=== PATIENT | female | born 1995 | race Caucasian/White ===

== ENCOUNTER → 2018-08-06 | Outpatient (CLI) | payer MEDICAID ==
--- NOTE | 2018-08-06 16:57 | Diagnostic Imaging Report ---
CLINICAL INDICATION: Patient with daily persistent migraines x seven weeks. No known trauma. EXAM: Axial CT scan of the brain performed without IV contrast. COMPARISON: None. FINDINGS: Skull streak artifact obscures some portions of the posterior fossa and brainstem. There is no evidence of acute cerebral infarct, intracranial hemorrhage, or gross mass effect. The brain parenchymal volume appears appropriate for patient's age. There is normal francois-white matter distinction. There is no significant midline shift or herniation. There is no evidence of hydrocephalus. The basal cisterns are unremarkable. The skull, extracranial soft tissue, and orbits are unremarkable. The paranasal sinuses are unremarkable. Temporal bones show no significant abnormality. IMPRESSION: Unremarkable CT scan of the brain. Dictated by: Dictated on workstation # [id number]
== END ==
LOC: RAD FS 16:35
PROVIDERS: ATTEND Nurse Practitioner Family
DX: G44.52 New daily persistent headache (NDPH) (principal)
CPT/HCPCS: 70450

== ENCOUNTER 2019-02-16 08:23 | Emergency (ER) | payer MEDICAID ==
[~2019-02-16] VITALS: Ht 162.5 cm; Wt 64.6 kg
--- NOTE | 2019-02-16 08:52 | ED General ---
General Chief Complaint: General Problems/Pain Stated Complaint: FEVER;NAUSEA;BREAST PAIN History of Present Illness Date Seen by Provider: Feb 16, 2019 Time Seen by Provider: 08:46 Initial Comments 23 yo female complains of 1-2 weeks of nausea vomits ~ twice daily subjective fever, sweats, and burning discomfort in breasts ROS + dysuria and frequency +PMHx for UTI's once requiring hospitaization one of children has pneumonia, but pt has no cough or SOB no hx of any cardiac or pulm pathology had borderline thyroid blood tests during that returned to normal has used xanax in the past for anxiety Allergies and Home Medications Allergies Coded Allergies: No Known Drug Allergies (Unverified , 02/16/19) Home Medications Alprazolam 0.5 Mg Tablet, 0.5 MG PO TID Prescribed by: KYLER ROSARIO on 02/16/19 1006 Patient Home Medication List Home Medication List Reviewed: Yes Review of Systems Review of Systems Constitutional: fever EENTM: no symptoms reported; No throat pain Respiratory: No cough, No short of breath Cardiovascular: no symptoms reported, chest pain (burning sensation superficially in breasts no deep chest pain no SOB); No palpitations, No syncope Gastrointestinal: No abdominal pain; nausea, vomiting Genitourinary: dysuria, frequency : No (states on depo shots 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 oz. 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 present Progress/Results/Core Measures Suspected Sepsis SIRS Temperature: Pulse: Respiratory Rate: Laboratory Tests 02/16/19 08:50: White Blood Count 6.1 Blood Pressure / Mean: Laboratory Tests 02/16/19 08:50: Creatinine 0.77, Platelet Count 272, Total Bilirubin 0.6 Results/Orders Lab Results Laboratory Tests Test 02/16/19 08:50 02/16/19 09:13 Range/Units White Blood Count 6.1 4.3-11.0 10^3/uL Red Blood Count 4.27 L 4.35-5.85 10^6/uL Hemoglobin 13.6 11.5-16.0 G/DL Hematocrit 40 35-52 % Mean Corpuscular Volume 93 80-99 FL Mean Corpuscular Hemoglobin 32 25-34 PG Mean Corpuscular Hemoglobin Concent 34 32-36 G/DL Red Cell Distribution Width 12.3 10.0-14.5 % Platelet Count 272 130-400 10^3/uL Mean Platelet Volume 9.4 7.4-10.4 FL Neutrophils (%) (Auto) 59 42-75 % Lymphocytes (%) (Auto) 34 12-44 % Monocytes (%) (Auto) 7 0-12 % Eosinophils (%) (Auto) 0 0-10 % Basophils (%) (Auto) 0 0-10 % Neutrophils # (Auto) 3.6 1.8-7.8 X 10^3 Lymphocytes # (Auto) 2.1 1.0-4.0 X 10^3 Monocytes # (Auto) 0.4 0.0-1.0 X 10^3 Eosinophils # (Auto) 0.0 0.0-0.3 10^3/uL Basophils # (Auto) 0.0 0.0-0.1 10^3/uL Sodium Level 140 135-145 MMOL/L Potassium Level 3.9 3.6-5.0 MMOL/L Chloride Level 105 98-107 MMOL/L Carbon Dioxide Level 21 21-32 MMOL/L Anion Gap 14 5-14 MMOL/L Blood Urea Nitrogen 10 7-18 MG/DL Creatinine 0.77 0.60-1.30 MG/DL Estimat Glomerular Filtration Rate > 60 BUN/Creatinine Ratio 13 Glucose Level 116 H 70-105 MG/DL Calcium Level 10.0 8.5-10.1 MG/DL Corrected Calcium 8.5-10.1 MG/DL Total Bilirubin 0.6 0.1-1.0 MG/DL Aspartate Amino Transf (AST/SGOT) 31 5-34 U/L Alanine Aminotransferase (ALT/SGPT) 27 0-55 U/L Alkaline Phosphatase 74 40-136 U/L Total Protein 8.0 6.4-8.2 GM/DL Albumin 5.1 H 3.2-4.5 GM/DL Urine Color YELLOW Urine Clarity CLEAR Urine pH 7.0 5-9 Urine Specific [place] 1.015 L 1.016-1.022 Urine Protein NEGATIVE NEGATIVE Urine Glucose (UA) NEGATIVE NEGATIVE Urine Ketones TRACE H NEGATIVE Urine Nitrite NEGATIVE NEGATIVE Urine Bilirubin NEGATIVE NEGATIVE Urine Urobilinogen 0.2 NORMAL MG/DL Urine Leukocyte Esterase NEGATIVE NEGATIVE Urine RBC (Auto) NEGATIVE NEGATIVE Urine RBC 0-2 /HPF Urine WBC 2-5 /HPF Urine Squamous Epithelial Cells 25-50 H /HPF Urine Crystals NONE /LPF Urine Bacteria FEW H /HPF Urine Casts NONE /LPF Urine Mucus SMALL H /LPF Urine Culture Indicated NO Urine Test NEGATIVE NEGATIVE My Orders Orders - KYLER ROSARIO MD Urinalysis (02/16/19 08:43) Hcg,Qualitative Urine (02/16/19 08:43) Cbc With Automated Diff (02/16/19 08:43) Comprehensive Metabolic Panel (02/16/19 08:43) Chest Pa/Lat (2 View) (02/16/19 08:43) Iv Heplock-Insert (Order) (02/16/19 08:45) Ekg Tracing (02/16/19 09:53) Vital Signs/I&O 02/16/19 08:30 Temp 37.4 Pulse 113 Resp 16 B/P (MAP) 125/90 (102) Pulse Ox 99 O2 Delivery Room Air Capillary Refill : Progress Note : Progress Note exam, all labs, and chest x-ray are neg/normal pt acknowledges hx of anxiety will Rx Xanax and ask pt to follow up with primary ECG EKG : Comment EKG - sinus @ [address] changes flipped T in III no old tracings available Departure Impression Primary Impression: Atypical chest pain Additional Impression: Anxiety Disposition: 01 HOME, SELF-CARE Condition: Stable Departure-Patient Inst. Decision time for Depature: 09:54 Referrals: [facility] (PCP) Primary Care Physician LOYD SONI MD (Family) Primary Care Physician Patient Instructions: Chest Pain That Is Not Caused by the Heart (DC), Anxiety, Adult (DC) Scripts Alprazolam (Xanax) 0.5 Mg Tablet 0.5 MG PO TID for Anxiety, #20 TAB Prov: KYLER ROSARIO MD 02/16/19 KYLER ROSARIO MD Feb 16, 2019 08:52
[2019-02-16 09:16] LABS: BASOPHILS % (AUTO) 0 % (0-10); EOSINOPHILS % (AUTO) 0 % (0-10); HEMATOCRIT 40 % (35-52); HEMOGLOBIN 13.6 G/DL (11.5-16.0); LYMPHOCYTES # (AUTO) 2.1 X 10^3 (1.0-4.0); LYMPHOCYTES % (AUTO) 34 % (12-44); MEAN CORPUSCULAR HEMOGLOBIN 32 PG (25-34); MEAN CORPUSCULAR HGB CONC 34 G/DL (32-36); MEAN CORPUSCULAR VOLUME 93 FL (80-99); MEAN PLATELET VOLUME 9.4 FL (7.4-10.4); MONOCYTES % (AUTO) 7 % (0-12); NEUTROPHILS # (AUTO) 3.6 X 10^3 (1.8-7.8); NEUTROPHILS % (AUTO) 59 % (42-75); PLATELET COUNT 272 10^3/uL (130-400); RED CELL DISTRIBUTION WIDTH 12.3 % (10.0-14.5); WHITE BLOOD COUNT 6.1 10^3/uL (4.3-11.0)
[2019-02-16 09:17] LABS: MONOCYTES # (AUTO) 0.4 X 10^3 (0.0-1.0)
--- NOTE | 2019-02-16 09:19 | Diagnostic Imaging Report ---
Patient History: Chills. Nausea and vomiting. Bilateral breast burning. Technique: Two views of the chest Comparison: None FINDINGS: The lung volumes are normal. No focal consolidation is seen. No large pleural effusion or pneumothorax is seen. The cardiomediastinal silhouette is normal in size and contour. No acute osseous abnormality is seen. IMPRESSION: 1. No acute pleuroparenchymal process. Dictated by: Dictated on workstation # [id number]
[2019-02-16 09:25] LABS: ALANINE AMINOTRANSFERASE 27 U/L (0-55); ALBUMIN 5.1 GM/DL (3.2-4.5); ALKALINE PHOSPHATASE 74 U/L (40-136); BILIRUBIN,TOTAL 0.6 MG/DL (0.1-1.0); BUN/CREATININE RATIO 13; CARBON DIOXIDE 21 MMOL/L (21-32); CHLORIDE 105 MMOL/L (98-107); CREATININE SERUM 0.77 MG/DL (0.60-1.30); GFR ESTIMATED > 60; GLUCOSE 116 MG/DL (70-105); POTASSIUM 3.9 MMOL/L (3.6-5.0); SODIUM 140 MMOL/L (135-145)
[2019-02-16 09:35] LABS: CLARITY,URINE CLEAR; COLOR,URINE YELLOW
[2019-02-16 09:36] LABS: BILIRUBIN,URINE NEGATIVE (NEGATIVE); GLUCOSE, URINE (UA) NEGATIVE (NEGATIVE); KETONES,URINE TRACE (NEGATIVE); LEUKOCYTE ESTERASE ,URINE NEGATIVE (NEGATIVE); NITRITE,URINE NEGATIVE (NEGATIVE); PROTEIN,URINE NEGATIVE (NEGATIVE); UROBILINOGEN,URINE 0.2 MG/DL (NORMAL)
[2019-02-16 09:38] LABS: BACTERIA,URINE FEW /HPF; RBC,URINE 0-2 /HPF
[2019-02-16 09:39] LABS: SQUAMOUS EPITHELIAL CELL,UR 25-50 /HPF
[2019-02-16] MEDS ORDERED: ALPR0.5T PO (10:06)
[2019-02-16 10:19] VITALS: BP 112/62
== END 2019-02-16 10:19 | disposition home or self-care (01) ==
LOC: EDUNIT# 08:23 → ER FS 08:25
DX: R07.89 Other chest pain (principal); F41.9 Anxiety disorder, unspecified
CPT/HCPCS: 36415; 71046; 80053; 81000; 84443; 84703; 85025; 93005

== ENCOUNTER 2019-11-30 16:50 | Emergency (ER) | payer MEDICAID ==
[~2019-11-30] VITALS: Ht 162.5 cm; Wt 64.6 kg
[~2019-11-30 16:50] MED LIST: ALPR0.5T PO
--- OUTSIDE RECORDS SUMMARY | 2019-11-30 16:56 | XMS REPORT ---
Author Author Emy GOOD Organization [facility] Address [address] [place] [address] Care Team Providers Care Chemic Mangler Name Role Phone WILMER GOOD Unavailable PROBLEMS Type Condition ICD9-CM Code LXC57-HY Code Onset Dates Condition S tatus SNOMED Code Problem Generalized anxiety disorder F41.1 A ctive 03549025 Problem Intractable migraine without status migrainosus, unspecified migraine type G43.919 Active 190774308 Problem New daily persistent headache G44.52 Active 470355262402778 Problem Vaginal bleeding N93.9 Active 289 755523 Problem Menorrhagia with irregular cycle N92.1 Active 865928613 Problem Migraine without aura and without status migrain osus, not intractable G43.009 Active 310724939 Problem Amenorrhea N91.2 Active 27944677 Problem Non-seasonal allergic rhinitis, unspecified trigger J30.89 Active 18451607 Problem Missed period N92.6 Active 436296 00 ALLERGIES No Known Allergies ENCOUNTERS Encounter Location Date Diagnosis [address] [id number] [place] [address] Oct, Generalized anxiety disorder F41.[address] [id number] [address] September, Generalized anxiety disorder F41.[address] [id number] [place] [address] 14 Aug, 2019 Generalized anxiety disorder F41.[address] [id number] [place] [address] 07 Aug, [address] [id number] [place] [address] Jul, Generalized anxiety disorder F41.[address] [id number] [place] [address] Jul, Menorrhagia with irregular c ycle N92.[address] [id number] [place] [address] Jul, Vaginal bleeding N93.[address] [id number] [address] Jul, Vaginal bleeding N93.[address] [id number], [place] [address] Jul, Burning chest pain R07.[address] [id number] [address] Jul, [address] [id number], [place] [address] Jul, Burning chest pain R07.89 an d Generalized anxiety disorder F41.[address] 340 [id number], [place] [address] Jul, [address] [id number], [place] [address] Jun, Generalized anxiety disorder F41.1 and Burning chest pain R07.89 [facility] [address] [facility] [id number] [address] [place] [address] Jun, [address] [id number], [place] [address] Jun, [address] [id number] [address] May, Missed period N92.6 ; Non-se asonal allergic rhinitis, unspecified trigger J30.89 ; Non-intractable vomiting without nausea, unspecified vomiting type R11.11 and Generalized anxiety disorder F41.[address] [id number] [address] May, Burning chest pain R07.[address] [id number] [place] [address] Apr, Burning chest pain R07.89 [facility] [address] [id number] [place] [address] Apr, Encounter for immunization Z 23 [facility] [address] [id number] [place] [address] Apr, Burning chest pain R07.89 [facility] [address] [id number] [place] [address] Mar, [facility] [address] [id number] [place] [address] Mar, Burning chest pain R07.89 [facility] [address] [id number] [place] [address] Mar, [facility] [address] [id number], [place] [address] Mar, [facility] [address] [id number] [place] [address] Mar, Perineal rash in female R21 [facility] [address] [id number], [place] [address] Mar, Abnormal thyroid function te st R94.6 [facility] [address] [id number], [place] [address] Mar, Burning chest pain R07.89 [facility] [address] [id number] [place] [address] Mar, [facility] [address] [id number] [address] [place] [address] Mar, Burning chest pain R07.89 [facility] [address] [id number] [place] [address] Feb, Left cervical lymphadenopath y R59.0 ; Thyroid pain E07.89 and Sore throat J02.9 [facility] [address] [id number] [place] [address] Feb, Left cervical lymphadenopath y R59.0 ; Thyroid pain E07.89 and Sore throat J02.9 [facility] [address] [id number] [place] [address] Feb, [facility] [address] [id number] [place] [address] Feb, Abnormal thyroid function te st R94.6 [facility] [address] [id number] [place] [address] Feb, Burning chest pain R07.89 [facility] [address] [id number] [place] [address] Feb, [facility] [address] [id number], [place] [address] Feb, [facility] [address] [id number] [address] [place] [address] Feb, [facility] [address] [id number] [place] [address] Jan, Encounter for Depo-Provera c ontraception Z30.42 [facility] [address] [id number] [place] [address] Nov, [facility] [address] [id number], [place] [address] Oct, [facility] [address] [id number] [place] [address] Oct, Pelvic pain R10.2 ; Bladder pain R39.89 and Urinary frequency R35.0 [facility] [address] [id number] [place] [address] Oct, [facility] [address] [id number] [place] [address] Oct, Encounter for Depo-Provera c ontraception Z30.[address] [id number] [place] [address] September, Amenorrhea N91.[address] [id number] [address] September, Amenorrhea N91.[address] [id number], [place] [address] Aug, Vaginal discharge N89.8 and Candidal vaginitis B37.[address] [id number], [place] [address] Aug, [address] [id number], [place] [address] Aug, [address] [id number], [place] [address] Aug, Vaginal yeast infection B37. [address] [id number], [place] [address] Aug, Ingrown toenail of right zack t L60.[address] 340 [id number] [address] Aug, Ingrown right greater toenai l L60.0 and Paronychia of great toe of right foot L03.[address] 340 [id number] [address] Aug, Migraine headache G43.[address] 340[address] [id number], [place] [address] Aug, Migraine without aura and wi thout status migrainosus, not intractable G43.[address] [id number], [place] [address] Jul, [address] [id number], [place] [address] Jul, [address] 340[address] [id number], [place] [address] Jul, [facility] [address] [id number] [place] [address] Jul, New daily persistent headach e G44.52 [facility] [address] [id number] [place] [address] Jul, [facility] [place] [address] [id number], [place] [address] Jul, Intractable migraine without status migrainosus, unspecified migraine type G43.919 [facility] [place] [address] [id number], [place] [address] Jul, [facility] [place] [address] [id number], [place] [address] Jul, Acute non-recurrent maxillar y sinusitis J01.00 and Generalized anxiety disorder F41.1 [facility] [address] [id number] [place] [address] Jun, Acute nasopharyngitis J00 [facility] [address] [facility] [id number] [address] [place] [address] Aug, [facility] [address] [facility] [id number] [address] [place] [address] Aug, [facility] [address] [facility] [id number] [address] [place] [address] May, [facility] [address] [facility] [id number] [address] [place] [address] May, [facility] [address] [facility] [id number] [address] [place] [address] May, IMMUNIZATIONS No Known Immunizations SOCIAL HISTORY Never Assessed REASON FOR VISIT Migraines. Jim OLIVARES PLAN OF CARE Activity Details Follow Up 4 Weeks Reason: VITAL SIGNS Height 64 in 2018-08-14 Weight 152 lbs 2018-08-14 Temperature 98.7 degrees Fahrenheit 2018-08-14 Heart Rate 93 bpm 2018-08-14 Respiratory Rate 18 2018-08-14 BMI 26.09 kg/m2 2018-08-14 Blood pressure systolic 124 mmHg 2018-08-14 Blood pressure diastolic 78 mmHg 2018-08-14 MEDICATIONS Medication Instructions Dosage Frequency Start Date End Date Duration S tatus Imitrex 50 MG Orally no more than twice a day 1 tablet as needed. May repeat one time 2 hours later if needed Jul, Active Promethazine HCl 25 MG Orally every 12 hrs 1 tablet as needed 12h Jul, 30 day(s) Active Topamax 25 MG Orally at bedtime 1 tablet Aug, 30 day(s) Active Depo-Provera Contraceptive 150 mg/mL SIG : 1 mL intramuscularly every 3 months May, Active DiphenhydrAMINE HCl 25 MG Orally every 8 hrs 1 tablet as needed 8h Jul, Active RESULTS No Results PROCEDURES No Known procedures INSTRUCTIONS MEDICATIONS ADMINISTERED No Known Medications MEDICAL (GENERAL) HISTORY Type Description Date Medical History Generalized anxiety disorder Medical History Intractable migraine without status migrainosus, unspecified migraine type Medical History New daily persistent headache Medical History Migraine without aura and wi thout status migrainosus, not intractable Medical History Amenorrhea Hospitalization History childbirth only x2 Hospitalization History migraines with
--- OUTSIDE RECORDS SUMMARY | 2019-11-30 16:56 | XMS REPORT | Continuity of Care Document ---
Author Organization Unknown Address Unknown Phone Unavailable Allergies Active Description Code Type Severity Reaction Onset Reported/Identified Relationship to Patient Clinical Status Yes No Known Drug Allergies [id number] Drug Allergy Unknown N/A 02/16/2019 Medications There is no data. Problems Date Dx Coded Attending Type Code Diagnosis Diagnosed By 08/07/2018 ABEL GOOD HEALTH EDUCATION DIRECTOR Ot G44.52 NEW DAILY PERSISTENT HEADACHE (NDPH) 08/07/2018 FLORENTINO ABEL HEALTH EDUCATION DIRECTOR Ot G44.52 NEW DAILY PERSISTENT HEADACHE (NDPH) 08/09/2018 FLORENTINO, ABEL HEALTH EDUCATION DIRECTOR Ot G44.52 NEW DAILY PERSISTENT HEADACHE (NDPH) 08/10/2018 FLORENTINO ABEL HEALTH EDUCATION DIRECTOR Ot G44.52 NEW DAILY PERSISTENT HEADACHE (NDPH) 02/16/2019 FLORENTINO ABEL HEALTH EDUCATION DIRECTOR Ot G44.52 NEW DAILY PERSISTENT HEADACHE (NDPH) Procedures There is no data. Results Test Result Range TSH w/ FREE T4 - 08/03/18 15:09 TSH 0.44 mIU/L NRG T4, FREE 1.2 ng/dL 0.8-1.8 CMP - 08/03/18 15:09 GLUCOSE 84 mg/dL 65-99 UREA NITROGEN (BUN) 15 mg/dL 7-25 CREATININE 0.80 mg/dL 0.50-1.10 eGFR NON-AFR. AZERBAIJANI 103 mL/min/1.73m2 > OR = 60 eGFR 120 mL/min/1.73m2 > OR = 60 BUN/CREATININE RATIO NOT APPLICABLE (calc) 6-22 SODIUM 140 mmol/L 135-146 POTASSIUM 3.6 mmol/L 3.5-5.3 CHLORIDE 108 mmol/L 98-110 CARBON DIOXIDE 23 mmol/L 20-32 CALCIUM 9.9 mg/dL 8.6-10.2 PROTEIN, TOTAL 7.3 g/dL 6.1-8.1 ALBUMIN 5.2 g/dL 3.6-5.1 GLOBULIN 2.1 g/dL (calc) 1.9-3.7 ALBUMIN/GLOBULIN RATIO 2.5 (calc) 1.0-2. 5 BILIRUBIN, TOTAL 0.4 mg/dL 0.2-1.2 ALKALINE PHOSPHATASE 62 U/L 33-115 AST 18 U/L 10-30 ALT 16 U/L 6-29 CBC - 08/03/18 15:09 WHITE BLOOD CELL COUNT 7.0 Thousand/uL 3 .8-10.8 RED BLOOD CELL COUNT 4.16 Million/uL 3.8 0-5.10 HEMOGLOBIN 13.3 g/dL 11.7-15.5 HEMATOCRIT 39.7 % 35.0-45.0 MCV 95.4 fL 80.0-100.0 MCH 32.0 pg 27.0-33.0 MCHC 33.5 g/dL 32.0-36.0 RDW 12.5 % 11.0-15.0 PLATELET COUNT 276 Thousand/uL 140-400 MPV 9.6 fL 7.5-12.5 ABSOLUTE NEUTROPHILS 3682 cells/uL 1500- 7800 ABSOLUTE LYMPHOCYTES 2695 cells/uL 850-3 900 ABSOLUTE MONOCYTES 581 cells/uL 200-950 ABSOLUTE EOSINOPHILS 21 cells/uL 15-500 ABSOLUTE BASOPHILS 21 cells/uL 0-200 NEUTROPHILS 52.6 % NRG LYMPHOCYTES 38.5 % NRG MONOCYTES 8.3 % NRG EOSINOPHILS 0.3 % NRG BASOPHILS 0.3 % NRG GC/CHLAMYDIA (SWAB OR URINE)-RAPID - 15:03 CHLAMYDIA TRACHOMATIS RNA, TMA NOT DETECTED NOT DETECTED NEISSERIA GONORRHOEAE RNA, TMA NOT DETECTED NOT DETECTED COMMENT NRG HCG, QUANTITATIVE - 09/26/18 15:59 HCG, TOTAL, QN <2 mIU/mL NRG GC/CHLAMYDIA (SWAB OR URINE)-RAPID - 14:40 CHLAMYDIA TRACHOMATIS RNA, TMA NOT DETECTED NOT DETECTED NEISSERIA GONORRHOEAE RNA, TMA NOT DETECTED NOT DETECTED COMMENT NRG Complete blood count (CBC) with automate d white blood cell (WBC) differential - 02/16/19 08:50 Blood leukocytes automated count (number/volume) 6.1 10*3/uL 4.3-11.0 Blood erythrocytes automated count (number/volume) 4.27 10*6/uL 4.35-5.85 Venous blood hemoglobin measurement (mass/volume) 13.6 g/dL 11.5-16.0 Blood hematocrit (volume fraction) 40 % 35-52 Automated erythrocyte mean corpuscular volume 93 [ foz_us] 80-99 Automated erythrocyte mean corpuscular h emoglobin (mass per erythrocyte) 32 pg 25-34 Automated erythrocyte mean corpuscular h emoglobin concentration measurement (mass/volume) 34 g/dL 32-36 Automated erythrocyte distribution width ratio 12. 3 % 10.0- 14.5 Automated blood platelet count (count/volume) 272 10*3/uL 130-400 Automated blood platelet mean volume measurement 9.4 [foz_us] 7.4-10.4 Automated blood neutrophils/100 leukocytes 59 % 42-75 Automated blood lymphocytes/100 leukocytes 34 % 12-44 Blood monocytes/100 leukocytes 7 % 0-12 Automated blood eosinophils/100 leukocytes 0 % 0-10 Automated blood basophils/100 leukocytes 0 % 0-10 Blood neutrophils automated count (number/volume) 3.6 10*3 1.8-7.8 Blood lymphocytes automated count (number/volume) 2.1 10*3 1.0-4.0 Blood monocytes automated count (number/volume) 0. 4 10*3 0.0-1.0 Automated eosinophil count 0.0 10*3/uL 0 .0-0.3 Automated blood basophil count (count/volume) 0.0 10*3/uL 0.0-0.1 Comprehensive metabolic panel - 02/16/19 08:50 Serum or plasma sodium measurement (moles/volume) 140 mmol/L 135-145 Serum or plasma potassium measurement (moles/volume) 3.9 mmol/L 3.6-5.0 Serum or plasma chloride measurement (moles/volume) 105 mmol/L 98-107 Carbon dioxide 21 mmol/L 21-32 Serum or plasma anion gap determination (moles/volume) 14 mmol/L 5-14 Serum or plasma urea nitrogen measurement (mass/volume ) 10 mg/dL 7-18 Serum or plasma creatinine measurement (mass/volume) 0.77 mg/dL 0.60-1.30 Serum or plasma urea nitrogen/creatinine mass ratio 13 NRG Serum or plasma creatinine measurement w ith calculation of estimated glomerular filtration rate > NRG Serum or plasma glucose measurement (mass/volume) 116 mg/dL 70-105 Serum or plasma calcium measurement (mass/volume) 10.0 mg/dL 8.5-10.1 Serum or plasma total bilirubin measurement (mass/volu me) 0.6 mg/dL 0.1-1.0 Serum or plasma alkaline phosphatase charles surement (enzymatic activity/volume) 74 U/L 40-136 Serum or plasma aspartate aminotransfera se measurement (enzymatic activity/volume) 31 U/L 5-34 Serum or plasma alanine aminotransferase measurement (enzymatic activity/volume) 27 U/L 0-55 Serum or plasma protein measurement (mass/volume) 8.0 g/dL 6.4-8.2 Serum or plasma albumin measurement (mass/volume) 5.1 g/dL 3.2-4.5 THYROID STIMULATING HORMONE - 02/16/19 0 8:50 THYROID STIMULATING HORMONE 0.49 u[iU]/mL 0.35-4.94 Urine beta human chorionic gonadotropin (hCG) measurement - 02/16/19 09:13 Urine beta human chorionic gonadotropin (hCG) measurem ent NEGATIVE NEGATIVE Complete urinalysis with reflex to cultu re - 02/16/19 09:13 Urine color determination YELLOW NRG Urine clarity determination CLEAR NR G Urine pH measurement by test strip 7.0 5-9 Specific gravity of urine by test strip 1.015 1.016-1.022 Urine protein assay by test strip, semi-quantitative NEGATIVE NEGATIVE Urine glucose detection by automated test strip NE GATIVE NEGATIVE Erythrocytes detection in urine sediment by light micr oscopy NEGATIVE NEGATIVE Urine ketones detection by automated test strip TR NORIS NEGATIVE Urine nitrite detection by test strip NEGATIVE NEGATIVE Urine total bilirubin detection by test strip NEGA TIVE NEGATIVE Urine urobilinogen measurement by automated test strip (mass/volume) 0.2 mg/dL NORMAL Urine leukocyte esterase detection by dipstick NEG ATIVE NEGATIVE Automated urine sediment erythrocyte cou nt by microscopy (number/high power field) [HPF] NRG Automated urine sediment leukocyte count by microscopy (number/high power field) [HPF] NRG Bacteria detection in urine sediment by light microsco py FEW NRG Squamous epithelial cells detection in u rine sediment by light microscopy 25-50 NRG Crystals detection in urine sediment by light microsco py NONE NRG Casts detection in urine sediment by light microscopy NONE NRG Mucus detection in urine sediment by light microscopy SMALL NRG Complete urinalysis with reflex to culture NO NRG TSH w/ FREE T4 - 03/04/19 15:01 TSH 0.33 mIU/L NRG T4, FREE 1.3 ng/dL 0.8-1.8 FSH, SERUM - 03/04/19 15:01 FSH 3.9 mIU/mL NRG TSH - 04/02/19 11:56 TSH 0.80 mIU/L NRG GC/CHLAMYDIA (SWAB OR URINE)-RAPID - 16:59 CHLAMYDIA TRACHOMATIS RNA, TMA NOT DETECTED NOT DETECTED NEISSERIA GONORRHOEAE RNA, TMA NOT DETECTED NOT DETECTED COMMENT NRG HCG, QUANTITATIVE - 08/08/19 11:20 HCG, TOTAL, QN <2 mIU/mL NRG Encounters ACCT No. Visit Date/Time Discharge Status Pt. Type Provider Facility Loc./Unit Complaint [id number] 08/08/2019 13:45:00 08/08/2019 23:59: 59 [facility] [id number] 08/08/2019 11:15:00 Document Registration [id number] 04/09/2019 17:40:00 Document Registration [id number] 04/02/2019 12:00:00 Document Registration [id number] 03/04/2019 14:20:00 Document Registration [id number] 11/08/2018 14:15:00 Document Registration [id number] 09/26/2018 16:15:00 Document Registration [id number] 09/05/2018 15:00:00 Document Registration [id number] 08/03/2018 14:20:00 Document Registration [id number] 02/16/2019 08:25:00 10:19:00 DIS Emergency MARLENE ADKINS, KYLER Mcmahon [facility] ER FS FEVER;NAUSEA;BREAST MIKAELA N [id number] 08/06/2018 16:35:00 23:59:59 CLS Outpatient ABEL GOOD [facility] RAD FS NEW DAILY PERSISTENT HE MICHAEL
--- OUTSIDE RECORDS SUMMARY | 2019-11-30 16:56 | XMS REPORT ---
Author Author Emy GOOD Organization [facility] Address [address] [place] [address] Care Team Providers [employer] Project Manager Name Role Phone WILMER GOOD Unavailable PROBLEMS Type Condition ICD9-CM Code RNO26-YX Code Onset Dates Condition S tatus SNOMED Code Problem Migraine without aura and without status migrain osus, not intractable G43.009 Active 329374896 Problem Amenorrhea N91.2 Active 53357110 Problem Generalized anxiety disorder F41.1 A ctive 00615942 Problem Intractable migraine without status migrainosus, unspecified migraine type G43.919 Active 570882156 Problem New daily persistent headache G44.52 Active [id number] ALLERGIES No Known Allergies ENCOUNTERS Encounter Location Date Diagnosis [address] [place] [address] Apr, Burning chest pain R07.89 [address] [place] [address] Apr, Encounter for immunization Z 23 [address] [place] [address] Apr, Burning chest pain R07.89 [address] [place] [address] Mar, [address] [place] [address] Mar, Burning chest pain R07.89 [address] [place] [address] Mar, [address] [place] [address] Mar, [address] [place] [address] Mar, Perineal rash in female R21 [facility] [address] [place] [address] Mar, Abnormal thyroid function te st R94.6 [facility] [address] [place] [address] Mar, Burning chest pain R07.89 [facility] [address] [place] [address] Mar, [facility] [address] [id number] [place] [address] Mar, Burning chest pain R07.89 [facility] [place] [address] [place] [address] Feb, Left cervical lymphadenopath y R59.0 ; Thyroid pain E07.89 and Sore throat J02.9 [facility] [address] [place] [address] Feb, Left cervical lymphadenopath y R59.0 ; Thyroid pain E07.89 and Sore throat J02.9 [facility] [place] [address] [place] [address] Feb, [facility] [place] [address] [place] [address] Feb, Abnormal thyroid function te st R94.6 [facility] [place] [address] [place] [address] Feb, Burning chest pain R07.89 [facility] [address] [place] [address] Feb, [facility] [address] [place] [address] Feb, [facility] [address] [id number] [place] [address] Feb, [facility] [place] [address] [place] [address] Jan, Encounter for Depo-Provera c ontraception Z30.42 [facility] [address] [place] [address] Nov, [facility] [address] [place] [address] Oct, [facility] [place] [address] [place] [address] Oct, Pelvic pain R10.2 ; Bladder pain R39.89 and Urinary frequency R35.0 [facility] [place] [address] [place] [address] Oct, [address] [place] [address] Oct, Encounter for Depo-Provera c ontraception Z30.42 [facility] [place] [address] [place] [address] September, Amenorrhea N91.[address] [place] [address] September, Amenorrhea N91.[address] [place] [address] Aug, Vaginal discharge N89.8 and Candidal vaginitis B37.3 [facility] [place] [address] [place] [address] Aug, [facility] [place] [address] [place] [address] Aug, [address] [place] [address] Aug, Vaginal yeast infection B37. 3 [facility] [place] [address] [place] [address] Aug, Ingrown toenail of right zack t L60.0 [facility] [place] [address] [place] [address] Aug, Ingrown right greater toenai l L60.0 and Paronychia of great toe of right foot L03.031 [facility] [place] [address] [place] [address] Aug, Migraine headache G43.909 [facility] [place] [address] [place] [address] Aug, Migraine without aura and wi thout status migrainosus, not intractable G43.009 [facility] [place] [address] [place] [address] Jul, [facility] [address] [place] [address] Jul, [facility] [address] [place] [address] Jul, [facility] [place] [address] [place] [address] Jul, New daily persistent headach e G44.52 [facility] [place] [address] [place] [address] Jul, [facility] [address] [place] [address] Jul, Intractable migraine without status migrainosus, unspecified migraine type G43.919 [facility] [place] [address] [place] [address] Jul, [facility] [place] [address] [place] [address] Jul, Acute non-recurrent maxillar y sinusitis J01.00 and Generalized anxiety disorder F41.1 [facility] [address] [place] [address] Jun, Acute nasopharyngitis J00 [facility] [address] [id number] [place] [address] 14 Aug, 2014 [facility] [address] [id number] [place] [address] 13 Aug, 2014 [facility] [address] [id number] [place] [address] May, [facility] [address] [id number] [place] [address] May, [facility] [address] [id number] [place] [address] May, IMMUNIZATIONS No Known Immunizations SOCIAL HISTORY Never Assessed REASON FOR VISIT Migraine, Jim OLIVARES PLAN OF CARE Activity Details Follow Up 1 Week Reason: VITAL SIGNS Height 64 in 2018-08-06 Weight 154 lbs 2018-08-06 Temperature 98.1 degrees Fahrenheit 2018-08-06 Heart Rate 111 bpm 2018-08-06 Respiratory Rate 18 2018-08-06 BMI 26.43 kg/m2 2018-08-06 Blood pressure systolic 124 mmHg 2018-08-06 Blood pressure diastolic 80 mmHg 2018-08-06 MEDICATIONS Medication Instructions Dosage Frequency Start Date End Date Duration S tatus Promethazine HCl 25 MG Orally every 12 hrs 1 tablet as needed 12h Jul, 30 day(s) Active DiphenhydrAMINE HCl 25 MG Orally every 8 hrs 1 tablet as needed 8h Jul, Active Depo-Provera Contraceptive 150 mg/mL SIG : 1 mL intramuscularly every 3 months May, Active RESULTS No Results PROCEDURES No Known [...]
--- OUTSIDE RECORDS SUMMARY | 2019-11-30 16:56 | XMS REPORT ---
Author Author Emy GOOD Organization [facility] Address [address] [place] [address] Care Team Providers Care Scaffold Worker Name Role Phone WILMER GOOD Unavailable PROBLEMS Type Condition ICD9-CM Code QMI12-QX Code Onset Dates Condition S tatus SNOMED Code Problem Generalized anxiety disorder F41.1 A ctive 96193476 Problem Intractable migraine without status migrainosus, unspecified migraine type G43.919 Active 229567511 Problem New daily persistent headache G44.52 Active [id number] Problem Vaginal bleeding N93.9 Active 289 959047 Problem Menorrhagia with irregular cycle N92.1 Active 430160810 Problem Migraine without aura and without status migrain osus, not intractable G43.009 Active 466761015 Problem Amenorrhea N91.2 Active 09913417 Problem Non-seasonal allergic rhinitis, unspecified trigger J30.89 Active 42312208 Problem Missed period N92.6 Active 554727 00 ALLERGIES No Information ENCOUNTERS Encounter Location Date Diagnosis [address] [id number], [place] [address] Aug, [address] 340[place] [id number], [place] [address] 31 Jul, 2019 Generalized anxiety disorder F41.[address] 340[address] [id number], [place] [address] Jul, Menorrhagia with irregular c ycle N92.[address] 340[address] [id number], [place] [address] Jul, Vaginal bleeding N93.[address] 340[address] [id number], [place] [address] Jul, Vaginal bleeding N93.[address] 340[address] [id number] [place] [address] Jul, Burning chest pain R07.[address] 340[address] [id number] [place] [address] Jul, [address] 340[address] [id number] [place] [address] Jul, Burning chest pain R07.89 an d Generalized anxiety disorder F41.[address] 340[address] [id number] [place] [address] Jul, [address] 340[address] [id number], [place] [address] Jun, Generalized anxiety disorder F41.1 and Burning chest pain R07.89 [facility] [address] [facility] [id number] 100KS [place] [address] Jun, [address] 340[address] [id number], [place] [address] Jun, [address] 340[address] [id number] [place] [address] May, Missed period N92.6 ; Non-se asonal allergic rhinitis, unspecified trigger J30.89 ; Non-intractable vomiting without nausea, unspecified vomiting type R11.11 and Generalized anxiety disorder F41.[address] 340[address] [id number] [place] [address] May, Burning chest pain R07.[address] 340[address] [id number], [place] [address] Apr, Burning chest pain R07.[address] 340B [id number], [place] [address] Apr, Encounter for immunization Z 23 [facility] [place] [address] 340[address] [id number], [place] [address] Apr, Burning chest pain R07.[address] 340[address] [id number] [place] [address] Mar, [facility] [address] 340B [id number] [place] [address] Mar, Burning chest pain R07.89 [facility] [address] 340B [id number] [place] [address] Mar, [facility] [address] 340B [id number] [place] [address] Mar, [facility] [address] 340B [id number] [place] [address] Mar, Perineal rash in female R21 [facility] JAMES [address] 340B [id number] [place] [address] Mar, Abnormal thyroid function te st R94.6 [facility] JAMES [address] 340B [id number], [place] [address] Mar, Burning chest pain R07.89 [facility] [address] 340B [id number] [place] [address] Mar, [facility] [address] [facility] [id number] 100KS [place] [address] Mar, Burning chest pain R07.89 [facility] [address] 340B [id number] [place] [address] Feb, Left cervical lymphadenopath y R59.0 ; Thyroid pain E07.89 and Sore throat J02.9 [facility] [address] [id number] [place] [address] Feb, Left cervical lymphadenopath y R59.0 ; Thyroid pain E07.89 and Sore throat J02.9 [facility] [address] [id number] [place] [address] Feb, [facility] [address] 340B [id number] [place] [address] Feb, Abnormal thyroid function te st R94.6 [facility] [place] [address] 340B [id number] [place] [address] Feb, Burning chest pain R07.89 [facility] [address] 340B [id number] [place] [address] Feb, [facility] [place] [address] 340B [id number] [place] [address] Feb, [facility] [address] [facility] [id number] 100KS [place] [address] Feb, [facility] JAMES [address] 340B [id number], [place] [address] Jan, Encounter for Depo-Provera c ontraception Z30.42 [facility] [address] 340B [id number] [place] [address] Nov, [facility] [address] 340B [id number], [place] [address] Oct, [facility] [address] 340B [id number], [place] [address] Oct, Pelvic pain R10.2 ; Bladder pain R39.89 and Urinary frequency R35.0 [facility] [address] 340B [id number] [place] [address] Oct, [facility] [address] 340B [id number], [place] [address] Oct, Encounter for Depo-Provera c ontraception Z30.42 [facility] [address] 340B [id number] [place] [address] September, Amenorrhea N91.2 [facility] [address] 340B [id number], [place] [address] September, Amenorrhea N91.2 [facility] [place] PE[place] [address] 340B [id number], [place] [address] Aug, Vaginal discharge N89.8 and Candidal vaginitis B37.3 [facility] [place] PE[place] [address] 340B [id number] [place] [address] Aug, [facility] [place] [address] 340B [id number] [place] [address] Aug, [facility] [place] [address] 340B [id number] [place] [address] Aug, Vaginal yeast infection B37. [address] 340B [id number], [place] [address] Aug, Ingrown toenail of right zack t L60.[address] 340 [id number], [place] [address] Aug, Ingrown right greater toenai l L60.0 and Paronychia of great toe of right foot L03.[address] 340B [id number], [place] [address] Aug, Migraine headache G43.909 [facility] [place] [address] 340B [id number], [place] [address] Aug, Migraine without aura and wi thout status migrainosus, not intractable G43.009 [facility] [place] [address] 340B [id number] [place] [address] Jul, [facility] [place] [address] 340B [id number], [place] [address] Jul, [address] 340B [id number], [place] [address] Jul, [address] 340B [id number], [place] [address] Jul, New daily persistent headach e G44.52 [facility] [place] [address] 340B [id number] [place] [address] Jul, [address] 340B [id number], [place] [address] Jul, Intractable migraine without status migrainosus, unspecified migraine type G43.919 [facility] [place] PE[place] [facility] [address] [facility] 340B [id number] [place] [address] Jul, [facility] [place] [facility] [address] [facility] 340B [id number] [place] [address] Jul, Acute non-recurrent maxillar y sinusitis J01.00 and Generalized anxiety disorder F41.1 [facility] [place] [facility] IN [facility] [address] 340 [id number] [place] [address] Jun, Acute nasopharyngitis J00 [facility] [address] [facility] [place] [id number] [address] [place] [address] Aug, [facility] [address] [facility]] [id number] [address] [place] [address] Aug, [facility] [address] [facility] [id number] [address] [place] [address] May, [facility] [address] [facility] [place]] [id number] [address] [place] [address] May, [facility] [address] [facility] [id number] [address] [place] [address] May, IMMUNIZATIONS No Known Immunizations SOCIAL HISTORY Never Assessed REASON FOR VISIT referral, PLAN OF CARE VITAL SIGNS MEDICATIONS Unknown Medications RESULTS No Results PROCEDURES No Known procedures [...]
--- OUTSIDE RECORDS SUMMARY | 2019-11-30 16:56 | XMS REPORT ---
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 Name Role Phone WILMER GOOD Unavailable PROBLEMS Type Condition ICD9-CM Code [id number] Code Onset Dates Condition S tatus SNOMED Code Problem Migraine without aura and without status migrain osus, not intractable G43.009 Active 391563497 Problem Amenorrhea N91.2 Active 04668884 Problem Generalized anxiety disorder F41.1 A ctive 38787052 Problem Intractable migraine without status migrainosus, unspecified migraine type G43.919 Active 819076702 Problem New daily persistent headache G44.52 Active 753223152246084 ALLERGIES No Information ENCOUNTERS Encounter Location Date Diagnosis [address] [place] [address] Apr, Burning chest pain R07.89 [address] [place] [address] Apr, Encounter for immunization Z 23 [address] [place] [address] Apr, Burning chest pain R07.89 [address] [place] [address] Mar, [address] [place] [address] Mar, Burning chest pain R07.[address] [place] [address] Mar, [address] [place] [address] Mar, [address] [place] [address] Mar, Perineal rash in female R21 [facility] [place] [address] [place] [address] Mar, Abnormal thyroid function te st R94.[address] [place] [address] Mar, Burning chest pain R07.[address] [place] [address] Mar, [facility] [address] [id number] [place] [address] Mar, Burning chest pain R07.89 [facility] [place] [address] [place] [address] Feb, Left cervical lymphadenopath y R59.0 ; Thyroid pain E07.89 and Sore throat J02.9 [facility] [facility] [address] [place] [address] Feb, Left cervical lymphadenopath y R59.0 ; Thyroid pain E07.89 and Sore throat J02.9 [facility] [place] [address] [place] [address] Feb, [facility] [place] [address] [place] [address] Feb, Abnormal thyroid function te st R94.6 [facility] [place] [address] [place] [address] Feb, Burning chest pain R07.[address] [place] [address] Feb, [facility] [place] [address] [place] [address] Feb, [facility] [address] [id number] [place] [address] Feb, [address] [place] [address] Jan, Encounter for Depo-Provera c ontraception Z30.42 [facility] [place] [address] [place] [address] Nov, [facility] [place] [address] [place] [address] Oct, [facility] [place] [address] [place] [address] Oct, Pelvic pain R10.2 ; Bladder pain R39.89 and Urinary frequency R35.0 [facility] [place] [address] [place] [address] Oct, [address] [place] [address] Oct, Encounter for Depo-Provera c ontraception Z30.42 [facility] [place] [address] [place] [address] September, Amenorrhea N91.[address] [place] [address] September, Amenorrhea N91.[address] [place] [address] Aug, Vaginal discharge N89.8 and Candidal vaginitis B37.3 [facility] [place] [address] [place] [address] Aug, [address] [place] [address] Aug, [address] [place] [address] Aug, Vaginal yeast infection B37. 3 [facility] [place] [address] [place] [address] Aug, Ingrown toenail of right zack t L60.0 [facility] [place] [address] [place] [address] Aug, Ingrown right greater toenai l L60.0 and Paronychia of great toe of right foot L03.031 [facility] [place] [address] [place] [address] Aug, Migraine headache G43.909 [facility] [place] [address] [place] [address] Aug, Migraine without aura and wi thout status migrainosus, not intractable G43.009 [facility] [place] [address] [place] [address] Jul, [facility] [place] [address] [place] [address] Jul, [facility] [place] [address] [place] [address] Jul, [facility] [place] [address] [place] [address] Jul, New daily persistent headach e G44.52 [facility] [place] [address] [place] [address] Jul, [facility] [place] [address] [place] [address] Jul, Intractable migraine without status migrainosus, unspecified migraine type G43.919 [facility] [place] [address] [place] [address] Jul, [facility] [place] [address] [place] [address] Jul, Acute non-recurrent maxillar y sinusitis J01.00 and Generalized anxiety disorder F41.1 [facility] [address] [place] [address] Jun, Acute nasopharyngitis J00 [facility] [address] [id number] [place] [address] Aug, [facility] [address] [id number] [place] [address] Aug, [facility] [address] [id number] [place] [address] May, [facility] [address] [id number] [place] [address] May, [facility] [address] [id number] [place] [address] May, IMMUNIZATIONS No Known Immunizations SOCIAL HISTORY Never Assessed REASON FOR VISIT Referal to a specialist PLAN OF CARE VITAL SIGNS MEDICATIONS Medication Instructions Dosage Frequency Start Date End Date Duration S tatus Imitrex 50 MG Orally no more than twice a day 1 tablet as needed. May repeat one time 2 hours later if needed Jul, Active RESULTS No Results PROCEDURES No [...]
--- OUTSIDE RECORDS SUMMARY | 2019-11-30 16:56 | XMS REPORT ---
Author Author Emy GOOD Organization [facility] Address [address] [place] [address] Care Team Providers Care Claim Trainee Name Role Phone WILMER GOOD Unavailable PROBLEMS Type Condition ICD9-CM Code TZT30-EY Code Onset Dates Condition S tatus SNOMED Code Problem Migraine without aura and without status migrain osus, not intractable G43.009 Active 588074091 Problem Amenorrhea N91.2 Active 59959128 Problem Generalized anxiety disorder F41.1 A ctive 48615975 Problem Intractable migraine without status migrainosus, unspecified migraine type G43.919 Active 790412636 Problem New daily persistent headache G44.52 Active 898916828475194 ALLERGIES No Information ENCOUNTERS Encounter Location Date Diagnosis [address] [place] [address] Apr, Burning chest pain R07.89 [address] [place] [address] Apr, Encounter for immunization Z 23 [address] [place] [address] Apr, Burning chest pain R07.89 [address] [place] [address] Mar, [address] [place] [address] Mar, Burning chest pain R07.[address] [place] [address] Mar, [address] [place] [address] Mar, [address] [place] [address] Mar, Perineal rash in female R21 [facility] [place] [address] [place] [address] Mar, Abnormal thyroid function te st R94.[address] [place] [address] Mar, Burning chest pain R07.[address] [place] [address] Mar, [facility] [address] [id number] [place] [address] Mar, Burning chest pain R07.89 [facility] [place] [address] [place] [address] Feb, Left cervical lymphadenopath y R59.0 ; Thyroid pain E07.89 and Sore throat J02.9 [facility] [facility] [address] [place] [address] Feb, Left cervical lymphadenopath y R59.0 ; Thyroid pain E07.89 and Sore throat J02.9 [facility] [place] [address] [place] [address] Feb, [facility] [place] [address] [place] [address] Feb, Abnormal thyroid function te st R94.6 [facility] [place] [address] [place] [address] Feb, Burning chest pain R07.[address] [place] [address] Feb, [facility] [place] [address] [place] [address] Feb, [facility] [address] [id number] [place] [address] Feb, [address] [place] [address] Jan, Encounter for Depo-Provera c ontraception Z30.42 [facility] [place] [address] [place] [address] Nov, [facility] [place] [address] [place] [address] Oct, [facility] [place] [address] [place] [address] Oct, Pelvic pain R10.2 ; Bladder pain R39.89 and Urinary frequency R35.0 [facility] [place] [address] [place] [address] Oct, [address] [place] [address] Oct, Encounter for Depo-Provera c ontraception Z30.42 [facility] [place] [address] [place] [address] September, Amenorrhea N91.[address] [place] [address] September, Amenorrhea N91.[address] [place] [address] Aug, Vaginal discharge N89.8 and Candidal vaginitis B37.3 [facility] [place] [address] [place] [address] Aug, [address] [place] [address] Aug, [address] [place] [address] Aug, Vaginal yeast infection B37. 3 [facility] [place] [address] [place] [address] Aug, Ingrown toenail of right zack t L60.0 [facility] [place] [address] [place] [address] Aug, Ingrown right greater toenai l L60.0 and Paronychia of great toe of right foot L03.031 [facility] [place] [place] [address] [place] [address] Aug, Migraine headache G43.909 [facility] [place] [address] [place] [address] Aug, Migraine without aura and wi thout status migrainosus, not intractable G43.009 [facility] [place] [address] [place] [address] Jul, [facility] [address] [place] [address] Jul, [facility] [address] [place] [address] Jul, [facility] [address] [place] [address] Jul, New daily persistent headach e G44.52 [facility] [place] [address] [place] [address] Jul, [facility] [address] [place] [address] Jul, Intractable migraine without status migrainosus, unspecified migraine type G43.919 [facility] [address] [place] [address] Jul, [facility] [address] [place] [address] Jul, Acute non-recurrent maxillar y sinusitis J01.00 and Generalized anxiety disorder F41.1 [facility] [address] [place] [address] Jun, Acute nasopharyngitis J00 [facility] [address] [id number] [place] [address] Aug, [facility] [address] [id number] [place] [address] Aug, [facility] [address] [id number] [place] [address] May, [facility] [address] [id number] [place] [address] May, [facility] [address] [id number] [place] [address] May, IMMUNIZATIONS No Known Immunizations SOCIAL HISTORY Never Assessed REASON FOR VISIT CT results PLAN OF CARE VITAL SIGNS MEDICATIONS Medication [...]
[2019-11-30] MEDS ORDERED: ONDANSETRON 4 MG (ZOFRAN) ORAL DISSOLVE TAB PO STA (17:42)
[2019-11-30 17:44] LABS: CLARITY,URINE CLOUDY; COLOR,URINE YELLOW
[2019-11-30 17:45] LABS: BACTERIA,URINE FEW /HPF; BILIRUBIN,URINE NEGATIVE (NEGATIVE); GLUCOSE, URINE (UA) NEGATIVE (NEGATIVE); KETONES,URINE 2+ (NEGATIVE); LEUKOCYTE ESTERASE ,URINE NEGATIVE (NEGATIVE); NITRITE,URINE NEGATIVE (NEGATIVE); PROTEIN,URINE NEGATIVE (NEGATIVE); WBC,URINE 0-2 /HPF
[2019-11-30] MEDS ORDERED: ACETAMINOPHEN 325 MG TABLET PO ONE (17:45)
[2019-11-30] MEDS ORDERED: KETOROLAC 60 MG/2 ML VIAL IM ONE (17:45)
--- NOTE | 2019-11-30 17:48 | ED General ---
General Chief Complaint: Back Problems Stated Complaint: COUGH,CONGESTION,KIDNEY PAIN Nursing Triage Note: Patient developed back pain around noon today reporting unable to lay on couch and get relief. Pt started running a fever below 100.0. Pt reports she felt this way with Ecoli infection before. Pt has a runny nose with some green production. Occas vomiting. Nursing Sepsis Screen: No Definite Risk Source of Information: Patient History of Present Illness Date Seen by Provider: Nov 30, 2019 Time Seen by Provider: 17:15 Initial Comments Patient is a 24-year-old female who presents with multiple medical complaints. Patient plans of cough, sore throat, chest pain with deep coughing and breathing, nausea and vomiting 2 today, low back pain and subjective fever. Patient also reports posttussive headache and has history of migraines. No medications or therapies taken prior to the arrival. Denies dizziness lightheadedness. Patient has had a measured temperature of 99. No urinary frequency urgency or dysuria. No other acute symptoms or complaints History of early tract infections. Denies history of kidney stones. Last menstrual period was 2 weeks ago. Timing/Duration: 4-6 Hours Severity: Moderate Associated Systoms: Other Allergies and Home Medications Allergies Coded Allergies: No Known Drug Allergies (Unverified , 02/16/19) Home Medications Alprazolam 0.5 Mg Tablet, 0.5 MG PO TID Prescribed by: KYLER ROSARIO on 02/16/19 1006 Patient Home Medication List Home Medication List Reviewed: Yes Review of Systems Review of Systems Constitutional: see HPI EENTM: see HPI Respiratory: see HPI Cardiovascular: see HPI Gastrointestinal: see HPI Genitourinary: see HPI Musculoskeletal: see HPI Skin: see HPI Psychiatric/Neurological: No Symptoms Reported Hematologic/Lymphatic: See HPI Immunological/Allergic: see HPI Past Afvjiho-Zgzbme-Pwyssg Hx Past Med/Social Hx: Reviewed Nursing Past Med/Soc Hx Patient Social History Alcohol Use: Occasionally Uses Recreational Drug Use: No Smoking Status: Current Everyday Smoker Type Used: Cigarettes 2nd Hand Smoke Exposure: No Recent Foreign Travel: No Contact w/Someone Who Travel: No Recent Infectious Disease Expo: No Recent Hopitalizations: No Physical Abuse: No Sexual Abuse: No Mistreated: No Fear: No Immunizations Up To Date Tetanus Booster (TDap): Less than 5yrs Seasonal Allergies Seasonal Allergies: No Past Medical History Surgeries: No Respiratory: No Cardiac: No Neurological: Yes Headaches /Migraines Genitourinary: Yes Kidney Infection Gastrointestinal: No Musculoskeletal: No Endocrine: No HEENT: No Cancer: No Psychosocial: Yes Anxiety Integumentary: No Blood Disorders: No Physical Exam Vital Signs Vital Signs - First Documented 11/30/19 16:58 Temp 37.6 Pulse 108 Resp 18 B/P (MAP) 115/65 (82) Pulse Ox 100 O2 Delivery Room Air Capillary Refill : Less Than 3 Seconds Height, Weight, BMI Height: '" Weight: lbs. oz. kg; 24.00 BMI Method: General Appearance: Anxious Eyes: Bilateral Eye Normal Inspection, Bilateral Eye PERRL, Bilateral Eye EOMI HEENT: TMs Normal, Normal ENT Inspection, Pharynx Normal Neck: Full Range of Motion, Normal Inspection, Non Tender, Supple Respiratory: Lungs Clear, Normal Breath Sounds Cardiovascular: Regular Rate, Rhythm, No Murmur Gastrointestinal: Non Tender, Soft Back: No CVA Tenderness, No Vertebral Tenderness Neurologic/Psychiatric: Alert Skin: Normal Color, Warm/Dry Focused Exam Sepsis Stage: Ruled Out Progress/Results/Core Measures Suspected Sepsis Recent Fever Within 48 Hours: No Infection Criteria Present: None New/Unexplained Altered Menta: No Sepsis Screen: No Definite Risk SIRS Temperature: Pulse: 108 Respiratory Rate: 18 Blood Pressure 115 /65 Mean: 82 Results/Orders Lab Results Laboratory Tests Test 11/30/19 17:07 Range/Units Urine Color YELLOW Urine Clarity CLOUDY Urine pH 8.0 5-9 Urine Specific Miles 1.020 1.016-1.022 Urine Protein NEGATIVE NEGATIVE Urine Glucose (UA) NEGATIVE NEGATIVE Urine Ketones 2+ H NEGATIVE Urine Nitrite NEGATIVE NEGATIVE Urine Bilirubin NEGATIVE NEGATIVE Urine Urobilinogen 0.2 < = 1.0 MG/DL Urine Leukocyte Esterase NEGATIVE NEGATIVE Urine RBC (Auto) NEGATIVE NEGATIVE Urine RBC NONE /HPF Urine WBC 0-2 /HPF Urine Squamous Epithelial Cells 10-25 H /HPF Urine Crystals NONE /LPF Urine Bacteria FEW H /HPF Urine Casts NONE /LPF Urine Mucus SMALL H /LPF Urine Culture Indicated NO My Orders Orders - JD BRAXTON DO Urine Bedside (11/30/19 17:06) Ua Culture If Indicated (11/30/19 17:06) Ketorolac Injection (Toradol Injection) (11/30/19 17:45) Ondansetron Oral Dissolve Tab (Zofran (11/30/19 17:42) Acetaminophen Tablet/Caplet (Tylenol T (11/30/19 17:45) Chest 1 View Ap/Pa Only (11/30/19 17:42) Medications Given in ED Current Medications Medications Dose Ordered Sig/Miguel Route Start Time Stop Time Status Last Admin Dose Admin Acetaminophen 650 mg ONCE ONCE PO 11/30/19 17:45 11/30/19 17:46 DC 11/30/19 18:22 650 MG Ketorolac Tromethamine 60 mg ONCE ONCE IM 11/30/19 17:45 11/30/19 17:46 DC 11/30/19 18:22 60 MG Vital Signs/I&O 11/30/19 11/30/19 11/30/19 16:58 18:22 18:22 Temp 37.6 37.6 37.6 Pulse 108 Resp 18 B/P (MAP) 115/65 (82) Pulse Ox 100 O2 Delivery Room Air Capillary Refill : Less Than 3 Seconds Blood Pressure Mean: 82 Departure Communication (Admissions) UA: Negative : Negative Chest x-ray: No acute cardiopulmonary disease per radiology report Multiple nonspecific symptoms with stable vital signs. History and exam is consistent with acute bronchitis with pleurisy and migraine headache. Recommend supportive care and self-quarantine pending COVID test results. . Pseudomonal Risk: No known risk Impression Primary Impression: Acute bronchitis Additional Impressions: Pleurisy Migraine Disposition: 01 HOME, SELF-CARE Condition: Stable Departure-Patient Inst. Referrals: [facility]/ (PCP) Primary Care Physician WILMER GOOD APRN (Family) Primary Care Physician Patient Instructions: Acute Bronchitis, Migraines in Adults, Pleuritic Chest Pain Add. Discharge Instructions: Please go home and rest. Increase fluids, take ibuprofen for pain and tramadol and Compazine as needed for additional relief. Continue cell quarantine pending COVID results. Follow-up with your PCP for reevaluation as needed. Return to the ED if new or worsening symptoms. All discharge instructions reviewed with patient and/or family. Voiced understanding. Scripts Prochlorperazine Maleate (Compazine) 10 Mg Tablet 10 MG PO Q8H, #10 TAB Prov: JD BRAXTON DO 11/30/19 Tramadol HCl (Tramadol HCl) 50 Mg Tablet 100 MG PO Q6H PRN for PAIN for 3 Days, #14 TAB 0 Refills Prov: JD BRAXTON DO 11/30/19 JD BRAXTON DO Nov 30, 2019 17:48
--- NOTE | 2019-11-30 18:32 | Diagnostic Imaging Report ---
INDICATION: Cough. EXAMINATION: Chest, one view at 6:07 p.m. FINDINGS: The heart size is within normal limits and stable when compared to 02/16/2019. The coarse perihilar markings seen on the prior study are again evident and no different. There is no sign of failure, pneumonia or a pleural effusion to indicate an acute abnormality. The mediastinum is not widened. The osseous structures are intact. IMPRESSION: There is no evidence for active disease. Dictated by: Dictated on workstation # [id number]
[2019-11-30] MEDS ORDERED: TRM50T PO (18:48)
[2019-11-30] MEDS ORDERED: PROC-1 PO (18:48)
[2019-11-30 19:10] VITALS: BP 115/65
== END 2019-11-30 19:10 | disposition home or self-care (01) ==
LOC: EDUNIT# 16:50 → ER FS 16:51
DX: J20.9 Acute bronchitis, unspecified (principal); R09.1 Pleurisy; G43.909 Migraine, unspecified, not intractable, without status migrainosus; F41.9 Anxiety disorder, unspecified; F17.210 Nicotine dependence, cigarettes, uncomplicated; Z20.828 Contact with and (suspected) exposure to other viral communicable diseases
CPT/HCPCS: 71045; 81000; 84703; 87635; 96372

== ENCOUNTER 2020-01-19 12:55 | Emergency (ER) | payer MEDICAID ==
[~2020-01-19 12:55] MED LIST changes: +PROC-1 PO; +TRM50T PO
[2020-01-19] MEDS ORDERED: IBUPROFEN 800 MG (MOTRIN) TAB PO ONE (13:15)
[2020-01-19] MEDS ORDERED: ACETAMINOPHEN 325 MG TABLET PO PRN (13:15)
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
[2020-01-19] MEDS ORDERED: CATHETER FLUSH 10 ML SYR IV PRN (13:45)
[2020-01-19] MEDS ORDERED: IOHEXOL 350 MG/ML 100 ML (OMNIPAQUE 350) VIAL IV ONE (13:45)
[2020-01-19] MEDS ORDERED: HOLD METFORMIN - RECEIVED CONTRAST 20 ML VIAL IV SCH (13:45)
[2020-01-19] MEDS ORDERED: NS 100 ML (IVPB) BAG IV ONE (13:45)
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
[2020-01-19] MEDS ORDERED: NAPR-1071 PO (14:39)
[2020-01-19] MEDS ORDERED: CYCL10TA9 PO (14:39)
[2020-01-19 14:48] VITALS: BP 116/67
== END 2020-01-19 14:50 | disposition home or self-care (01) ==
LOC: EDUNIT# 12:55 → ER FS 12:56
DX: M54.2 Cervicalgia (principal); R20.2 Paresthesia of skin; M54.6 Pain in thoracic spine; F41.9 Anxiety disorder, unspecified; G43.909 Migraine, unspecified, not intractable, without status migrainosus; F17.210 Nicotine dependence, cigarettes, uncomplicated; Y04.0XXA Assault by unarmed brawl or fight, initial encounter
CPT/HCPCS: 70450; 70498; 72072; 72125

== ENCOUNTER 2020-01-30 20:10 | Emergency (ER) | payer MEDICAID ==
[~2020-01-30] VITALS: Ht 160 cm; Wt 61.2 kg
[~2020-01-30 20:10] MED LIST changes: +CYCL10TA9 PO; +NAPR-1071 PO
--- NOTE | 2020-01-30 20:41 | ED General ---
General Stated Complaint: VOMITING,MOUTH/ABD PAIN,ABSESS IN RT SIDE MOUTH Source of Information: Patient Exam Limitations: No Limitations History of Present Illness Date Seen by Provider: Jan 30, 2020 Time Seen by Provider: 20:27 Initial Comments The patient is a pleasant 24-year-old female who presents for evaluation of nausea and vomiting over the last 2 days as well as a chronic abscess to the right side of her mouth over the last 2 weeks. She states that she went to see her dentist who prescribed her clindamycin and told her that she needs to have a tooth pulled but did not drain the abscess. The other night she felt like it "popped" and she swallowed some of the pus and this made her nauseous. She denies abdominal pain, fevers or chills, diarrhea, chest pain or shortness of breath, back or flank pain, headache, neck pain or stiffness, urinary complaints , dizziness or syncope. She states that she is late for her menstrual cycle and could possibly be . She is alert and oriented 4, calm, and appears to be in no distress. Timing/Duration: 1-2 Days Severity: Moderate Associated Systoms: Nausea/Vomiting Allergies and Home Medications Allergies Coded Allergies: No Known Drug Allergies (Unverified , 02/16/19) Home Medications Alprazolam 0.5 Mg Tablet, 0.5 MG PO TID Prescribed by: KYLER ROSARIO on 02/16/19 1006 Cyclobenzaprine HCl 10 Mg Tablet, 10 MG PO Q8H Prescribed by: ELIZABETH RAINES on 01/19/20 1439 Naproxen 500 Mg Tablet, 500 MG PO BID Prescribed by: ELIZABETH RAINES on 01/19/20 1439 Prochlorperazine Maleate 10 Mg Tablet, 10 MG PO Q8H Prescribed by: JD BRAXTON on 11/30/19 1848 Tramadol HCl 50 Mg Tablet, 100 MG PO Q6H PRN for PAIN Prescribed by: JD BRAXTON on 11/30/19 1848 Patient Home Medication List Home Medication List Reviewed: Yes Review of Systems Review of Systems Constitutional: no symptoms reported EENTM: other (gingival abscess) Respiratory: no symptoms reported Cardiovascular: no symptoms reported Gastrointestinal: nausea, vomiting Genitourinary: no symptoms reported Musculoskeletal: no symptoms reported Skin: no symptoms reported Psychiatric/Neurological: No Symptoms Reported Hematologic/Lymphatic: No Symptoms Reported Immunological/Allergic: no symptoms reported All Other Systems Reviewed Negative Unless Noted: Yes Past Ajryhuk-Afwtvk-Yzwlry Hx Past Med/Social Hx: Reviewed Nursing Past Med/Soc Hx Patient Social History Type Used: Cigarettes 2nd Hand Smoke Exposure: No Recent Foreign Travel: No Contact w/Someone Who Travel: No Recent Hopitalizations: No Immunizations Up To Date Tetanus Booster (TDap): Less than 5yrs Seasonal Allergies Seasonal Allergies: No Past Medical History Surgeries: No Respiratory: No Cardiac: No Neurological: Yes Headaches /Migraines Genitourinary: Yes Kidney Infection Gastrointestinal: No Musculoskeletal: No Endocrine: No HEENT: No Cancer: No Psychosocial: Yes Anxiety Integumentary: No Blood Disorders: No Physical Exam Vital Signs Vital Signs - First Documented 01/30/20 20:27 Temp 36.6 Pulse 88 Resp 16 B/P (MAP) 122/85 (97) Pulse Ox 100 O2 Delivery Room Air Capillary Refill : Height, Weight, BMI Height: '" Weight: lbs. oz. kg; 24.00 BMI Method: General Appearance: No Apparent Distress, WD/WN, Anxious Eyes: Bilateral Eye Normal Inspection, Bilateral Eye PERRL, Bilateral Eye EOMI HEENT: PERRL/EOMI, Other (0.7 cm abscess to the right gingiva lateral to the lower teeth) Neck: Full Range of Motion, Normal Inspection, Non Tender, Supple Respiratory: Lungs Clear, Normal Breath Sounds, No Accessory Muscle Use Cardiovascular: Regular Rate, Rhythm, No JVD, No Murmur, Normal Peripheral Pulses Gastrointestinal: Normal Bowel Sounds, No Pulsatile Mass, Non Tender, Soft Extremity: Normal Capillary Refill Neurologic/Psychiatric: Alert, Oriented x3, No Motor/Sensory Deficits, Normal Mood/Affect Skin: Normal Color, Warm/Dry Procedures/Interventions I&D : Blade Size: 18 gauge needle Progress right lower gingival abscess anesthetized with 1% lidocaine with epinephrine and then 18 used needle was used to evacuate the pus, patient tolerated the procedure well next parent some relief Progress/Results/Core Measures Suspected Sepsis SIRS Temperature: Pulse: Respiratory Rate: Laboratory Tests 01/30/20 20:38: White Blood Count 7.0 Blood Pressure / Mean: Laboratory Tests 01/30/20 20:38: Creatinine 0.66, Platelet Count 294, Total Bilirubin 0.4 Results/Orders Lab Results Laboratory Tests Test 01/30/20 20:38 01/30/20 21:45 Range/Units White Blood Count 7.0 4.3-11.0 10^3/uL Red Blood Count 4.55 4.35-5.85 10^6/uL Hemoglobin 14.8 11.5-16.0 G/DL Hematocrit 43 35-52 % Mean Corpuscular Volume 95 80-99 FL Mean Corpuscular Hemoglobin 33 25-34 PG Mean Corpuscular Hemoglobin Concent 34 32-36 G/DL Red Cell Distribution Width 13.3 10.0-14.5 % Platelet Count 294 130-400 10^3/uL Mean Platelet Volume 9.2 7.4-10.4 FL Neutrophils (%) (Auto) 57 42-75 % Lymphocytes (%) (Auto) 34 12-44 % Monocytes (%) (Auto) 8 0-12 % Eosinophils (%) (Auto) 0 0-10 % Basophils (%) (Auto) 0 0-10 % Neutrophils # (Auto) 4.0 1.8-7.8 X 10^3 Lymphocytes # (Auto) 2.4 1.0-4.0 X 10^3 Monocytes # (Auto) 0.5 0.0-1.0 X 10^3 Eosinophils # (Auto) 0.0 0.0-0.3 10^3/uL Basophils # (Auto) 0.0 0.0-0.1 10^3/uL Sodium Level 140 135-145 MMOL/L Potassium Level 3.8 3.6-5.0 MMOL/L Chloride Level 102 98-107 MMOL/L Carbon Dioxide Level 24 21-32 MMOL/L Anion Gap 14 5-14 MMOL/L Blood Urea Nitrogen 7 7-18 MG/DL Creatinine 0.66 0.60-1.30 MG/DL Estimat Glomerular Filtration Rate > 60 BUN/Creatinine Ratio 11 Glucose Level 97 70-105 MG/DL Calcium Level 10.0 8.5-10.1 MG/DL Corrected Calcium 8.5-10.1 MG/DL Total Bilirubin 0.4 0.1-1.0 MG/DL Aspartate Amino Transf (AST/SGOT) 29 5-34 U/L Alanine Aminotransferase (ALT/SGPT) 21 0-55 U/L Alkaline Phosphatase 94 40-136 U/L Total Protein 7.9 6.4-8.2 GM/DL Albumin 4.9 H 3.2-4.5 GM/DL Amylase Level 42 25-125 U/L Lipase 22 8-78 U/L Serum Test, Qualitative NEGATIVE NEGATIVE Urine Color YELLOW Urine Clarity SL CLOUDY Urine pH 6.0 5-9 Urine Specific [place] 1.020 1.016-1.022 Urine Protein NEGATIVE NEGATIVE Urine Glucose (UA) NEGATIVE NEGATIVE Urine Ketones TRACE H NEGATIVE Urine Nitrite NEGATIVE NEGATIVE Urine Bilirubin NEGATIVE NEGATIVE Urine Urobilinogen 0.2 < = 1.0 MG/DL Urine Leukocyte Esterase 1+ H NEGATIVE Urine RBC (Auto) NEGATIVE NEGATIVE Urine RBC NONE /HPF Urine WBC 0-2 /HPF Urine Squamous Epithelial Cells >50 H /HPF Urine Crystals NONE /LPF Urine Bacteria TRACE /HPF Urine Casts NONE /LPF Urine Mucus SMALL H /LPF Urine Culture Indicated NO My Orders Orders - KAVYA ESTES DO Cbc With Automated Diff (01/30/20 20:33) Comprehensive Metabolic Panel (01/30/20 20:33) Ua Culture If Indicated (01/30/20 20:33) Ns Iv 1000 Ml (Sodium Chloride 0.9%) (01/30/20 20:45) Ondansetron Injection (Zofran Injectio (01/30/20 20:45) Lipase (01/30/20 20:42) Amylase (01/30/20 20:42) Hcg,Qualitative Serum (01/30/20 21:10) Ondansetron Injection (Zofran Injectio (01/30/20 22:15) Ns Iv 1000 Ml (Sodium Chloride 0.9%) (01/30/20 22:15) Prochlorperazine Injection (Compazine In (01/30/20 22:45) Medications Given in ED Current Medications Medications Dose Ordered Sig/Miguel Route Start Time Stop Time Status Last Admin Dose Admin Ondansetron HCl 4 mg ONCE ONCE IVP 01/30/20 20:45 01/30/20 20:46 DC 01/30/20 20:51 4 MG Ondansetron HCl 4 mg ONCE ONCE IVP 01/30/20 22:15 01/30/20 22:16 DC 01/30/20 22:15 4 MG Vital Signs/I&O 01/30/20 20:27 Temp 36.6 Pulse 88 Resp 16 B/P (MAP) 122/85 (97) Pulse Ox 100 O2 Delivery Room Air Capillary Refill : Progress Note : Progress Note @2305 - the patient is somewhat nauseated but states that she would like to go home. She does believe that the antibiotic she was prescribed for the oral abscess may be contributing to her nausea. Advised the patient to follow-up with her doctor in the next 1-2 days and to return to the emergency Department immediately for new or worsening symptoms. She denies any abdominal discomfort or any other complaints and states that her mouth is feeling better. Departure Impression Primary Impression: Nausea and vomiting Additional Impression: Dental abscess Disposition: HOME, SELF-CARE Condition: Stable Departure-Patient Inst. Decision time for Depature: 23:05 Referrals: [facility] (PCP) Primary Care Physician WILMER GOOD APRN (Family) Primary Care Physician Patient Instructions: Tooth Abscess (DC), Nausea and Vomiting, Adult (DC) Add. Discharge Instructions: Take the prescribed medicine as directed. Return to the emergency Department immediately for new or worsening symptoms. Follow-up with your doctor in the next 1-2 days. Scripts Ondansetron (Ondansetron Odt) 4 Mg Tab.rapdis 4 MG PO Q4H PRN for NAUSEA-1ST LINE for 5 Days, #20 TAB Prov: KAVYA ESTES DO 01/30/20 KAVYA ESTES DO Jan 30, 2020 20:41
[2020-01-30] MEDS ORDERED: NS IV 1000 ML 1,000 ML IV SCH ×2 (20:45→22:15)
[2020-01-30] MEDS ORDERED: ONDANSETRON 4 MG/2 ML (SDV) Z0FRAN IVP ONE ×2 (20:45→22:15)
[2020-01-30 20:56] LABS: BASOPHILS % (AUTO) 0 % (0-10); EOSINOPHILS % (AUTO) 0 % (0-10); HEMATOCRIT 43 % (35-52); HEMOGLOBIN 14.8 G/DL (11.5-16.0); LYMPHOCYTES # (AUTO) 2.4 X 10^3 (1.0-4.0); LYMPHOCYTES % (AUTO) 34 % (12-44); MEAN CORPUSCULAR HEMOGLOBIN 33 PG (25-34); MEAN CORPUSCULAR HGB CONC 34 G/DL (32-36); MEAN CORPUSCULAR VOLUME 95 FL (80-99); MEAN PLATELET VOLUME 9.2 FL (7.4-10.4); MONOCYTES # (AUTO) 0.5 X 10^3 (0.0-1.0); MONOCYTES % (AUTO) 8 % (0-12); NEUTROPHILS % (AUTO) 57 % (42-75); PLATELET COUNT 294 10^3/uL (130-400)
[2020-01-30 21:12] LABS: CARBON DIOXIDE 24 MMOL/L (21-32); CHLORIDE 102 MMOL/L (98-107); POTASSIUM 3.8 MMOL/L (3.6-5.0); SODIUM 140 MMOL/L (135-145)
[2020-01-30 21:13] LABS: ALANINE AMINOTRANSFERASE 21 U/L (0-55); ALBUMIN 4.9 GM/DL (3.2-4.5); ALKALINE PHOSPHATASE 94 U/L (40-136); AMYLASE 42 U/L (25-125); BILIRUBIN,TOTAL 0.4 MG/DL (0.1-1.0); BUN/CREATININE RATIO 11; CREATININE SERUM 0.66 MG/DL (0.60-1.30); GFR ESTIMATED > 60; GLUCOSE 97 MG/DL (70-105); LIPASE 22 U/L (8-78); TOTAL PROTEIN 7.9 GM/DL (6.4-8.2)
[2020-01-30 22:05] LABS: BACTERIA,URINE TRACE /HPF; BILIRUBIN,URINE NEGATIVE (NEGATIVE); CLARITY,URINE SL CLOUDY; COLOR,URINE YELLOW; GLUCOSE, URINE (UA) NEGATIVE (NEGATIVE); KETONES,URINE TRACE (NEGATIVE); LEUKOCYTE ESTERASE ,URINE 1+ (NEGATIVE); NITRITE,URINE NEGATIVE (NEGATIVE); PROTEIN,URINE NEGATIVE (NEGATIVE); SQUAMOUS EPITHELIAL CELL,UR >50 /HPF; WBC,URINE 0-2 /HPF
[2020-01-30] MEDS ORDERED: PROCHLORPERAZINE 10 MG/2ML INJ (COMPAZINE) IV ONE (22:45)
[2020-01-30] MEDS ORDERED: ONDA4TAB11 PO (23:05)
[2020-01-30] MEDS ORDERED: RX-ONDANSETRON 4 MG ODT (ZOFRAN) PPK #4 PO STA (23:06)
[2020-01-30 23:13] VITALS: BP 126/79
== END 2020-01-30 23:13 | disposition home or self-care (01) ==
LOC: EDUNIT# 20:10 → ER FS 20:12
DX: R11.2 Nausea with vomiting, unspecified (principal); K04.7 Periapical abscess without sinus; F41.9 Anxiety disorder, unspecified; G43.909 Migraine, unspecified, not intractable, without status migrainosus
CPT/HCPCS: 36415; 80053; 81000; 82150; 83690; 84703; 85025

== ENCOUNTER 2021-10-04 15:24 | Emergency (ER) | payer MEDICAID ==
[~2021-10-04] VITALS: Ht 162.5 cm; Wt 58.0 kg
[~2021-10-04 15:24] MED LIST changes: +CYCL10TA25 PO; -CYCL10TA9 PO; +ONDA4TAB11 PO
[2021-10-04] MEDS ORDERED: ONDANSETRON 4 MG (ZOFRAN) ORAL DISSOLVE TAB PO STA (16:08)
--- NOTE | 2021-10-04 16:13 | ED General ---
General Stated Complaint: BOWEL CONSTIPATION Source of Information: Patient Exam Limitations: No Limitations History of Present Illness Date Seen by Provider: October 04, 2021 Time Seen by Provider: 15:26 Initial Comments 26-year-old female that is roughly 10 weeks EGA she is estimating by her LMP coming in due to constipation with nausea. Has not had a bowel movement roughly 2 days. Typically is regular. Has been taking multiple stool softeners including 2 yesterday and 1 today. Has not had an official ultrasound for this as of yet. Denies any significant abdominal pain, has never had any a bdominal surgeries, and is otherwise denying any other acute complaints other than she is endorsing some foul-smelling urine. She says she has clear vaginal discharge without bleeding. Allergies and Home Medications Allergies Coded Allergies: No Known Drug Allergies (Unverified , 02/16/19) Patient Home Medication List Home Medication List Reviewed: Yes Alprazolam (Xanax) 0.5 Mg Tablet, 0.5 MG PO TID Prescribed by: KYLER ROSARIO on 02/16/19 1006 Cyclobenzaprine HCl (Cyclobenzaprine HCl) 10 Mg Tablet, 10 MG PO Q8H Prescribed by: ELIZABETH RAINES on 01/19/20 1439 Naproxen (Naprosyn) 500 Mg Tablet, 500 MG PO BID Prescribed by: ELIZABETH RAINES on 01/19/20 1439 Ondansetron (Ondansetron Odt) 4 Mg Tab.rapdis, 4 MG PO Q4H PRN for NAUSEA-1ST LINE Prescribed by: KAVYA ESTES on 01/30/20 2305 Prochlorperazine Maleate (Compazine) 10 Mg Tablet, 10 MG PO Q8H Prescribed by: JD BRAXTON on 11/30/19 1848 Tramadol HCl (Tramadol HCl) 50 Mg Tablet, 100 MG PO Q6H PRN for PAIN Prescribed by: JD BRAXTON on 11/30/19 184 Review of Systems Review of Systems Constitutional: No chills, No fever EENTM: No blurred vision Respiratory: no symptoms reported Cardiovascular: no symptoms reported Gastrointestinal: constipation, nausea Genitourinary: No dysuria Musculoskeletal: no symptoms reported Skin: no symptoms reported Psychiatric/Neurological: No Symptoms Reported Hematologic/Lymphatic: No Symptoms Reported Immunological/Allergic: no symptoms reported All Other Systems Reviewed Negative Unless Noted: Yes Past Nnfuvle-Rtsxon-Xsfthg Hx Patient Social History Tobacco Use?: Yes Tobacco type used: Cigarettes Substance use?: No Alcohol Use?: No Immunizations Up To Date Tetanus Booster (TDap): Less than 5yrs Seasonal Allergies Seasonal Allergies: No Past Medical History Surgeries: No Respiratory: No Cardiac: No Neurological: Yes Headaches /Migraines Genitourinary: Yes Kidney Infection Gastrointestinal: No Musculoskeletal: No Endocrine: No HEENT: No Cancer: No Psychosocial: Yes Anxiety Integumentary: No Blood Disorders: No Physical Exam Vital Signs Capillary Refill : Height, Weight, BMI Height: '" Weight: lbs. oz. kg; 23.00 BMI Method: General Appearance: No Apparent Distress, WD/WN Eyes: Bilateral Eye Normal Inspection HEENT: PERRL/EOMI, Normal ENT Inspection, Pharynx Normal Neck: Full Range of Motion, Normal Inspection, Non Tender, Supple Respiratory: Chest Non Tender, Lungs Clear, Normal Breath Sounds, No Accessory Muscle Use, No Respiratory Distress Cardiovascular: Regular Rate, Rhythm, No Edema, Normal Peripheral Pulses Gastrointestinal: Normal Bowel Sounds, Non Tender, Soft; No Distended, No Guarding Back: Normal Inspection, No CVA Tenderness, No Vertebral Tenderness Extremity: Normal Capillary Refill, Normal Inspection, Normal Range of Motion, Non Tender, No Calf Tenderness, No Pedal Edema Neurologic/Psychiatric: Alert, No Motor/Sensory Deficits, Normal Mood/Affect Skin: Normal Color, Warm/Dry Lymphatic: No Adenopathy Progress/Results/Core Measures Suspected Sepsis SIRS Temperature: Pulse: Respiratory Rate: Blood Pressure / Mean: Results/Orders Lab Results Laboratory Tests Test 10/04/21 16:10 Range/Units Urine Color YELLOW Urine Clarity SL CLOUDY Urine pH 6.0 5-9 Urine Specific [place] 1.025 H 1.016-1.022 Urine Protein NEGATIVE NEGATIVE Urine Glucose (UA) NEGATIVE NEGATIVE Urine Ketones NEGATIVE NEGATIVE Urine Nitrite POSITIVE H NEGATIVE Urine Bilirubin NEGATIVE NEGATIVE Urine Urobilinogen 0.2 < = 1.0 MG/DL Urine Leukocyte Esterase TRACE H NEGATIVE Urine RBC (Auto) NEGATIVE NEGATIVE Urine RBC NONE /HPF Urine WBC 25-50 H /HPF Urine Squamous Epithelial Cells 5-10 /HPF Urine Crystals NONE /LPF Urine Bacteria LARGE H /HPF Urine Casts NONE /LPF Urine Mucus MODERATE H /LPF Urine Culture Indicated YES My Orders Orders - MANE MEAD MD Ua Culture If Indicated (10/04/21 16:08) Ondansetron Oral Dissolve Tab (Zofran (10/04/21 16:08) Urine Culture (10/04/21 16:10) Vital Signs/I&O Capillary Refill : Progress Note : Progress Note 26-year-old female with above history coming in due to constipation with nausea while being . ABCs were intact and vitals were stable on presentation. Physical exam reassuring including normal bowel sounds with a soft and nontender abdomen. She is passing flatus and clinically does not sound obstructed. Would also be much less likely to be obstructed given she is never had any abdominal surgeries. I did a [id number] ultrasound and she does have an intrauterine with heart rate around 150. She was given Zofran for nausea. Urinalysis ran due to the foul-smelling urine she is describing. Departure Impression Primary Impression: Nausea and vomiting during Additional Impressions: Constipation Qualified Codes: K59.01 - Slow transit constipation UTI (urinary tract infection) Qualified Codes: N30.00 - Acute cystitis without hematuria Disposition: HOME, SELF-CARE Condition: Stable Departure-Patient Inst. Referrals: [facility] ([facility]P/Family) Primary Care Physician Patient Instructions: Morning Sickness ED, Constipation in Adults, Urinary Tract Infection, Adult ED Add. Discharge Instructions: I want you to buy [id number] Miralax at the pharmacy. Take 1-2 capfuls 3 times a day until you have a bowel movement and then you can slow down how much you are taking. Follow-up with the OB as soon as possible so you can establish care. You also have a urinary tract infection. You will take 2 antibiotics for the next week. Scripts Ondansetron (Ondansetron Odt) 4 Mg Tab.rapdis 4 MG PO Q6H PRN for NAUSEA/VOMITING-1ST LINE for 5 Days, #20 TAB Prov: MANE MEAD MD 10/04/21 Metronidazole (Metronidazole) 500 Mg Tablet 500 MG PO BID for 7 Days, #14 TAB 0 Refills Prov: MANE MEAD MD 10/04/21 Nitrofurantoin Monohyd/M-Cryst (Macrobid 100 mg Capsule) 100 Mg Capsule 1 TAB PO BID for 7 Days, #14 CAP Prov: MANE MEAD MD 10/04/21 MANE MEAD MD October 04, 2021 16:13
[2021-10-04 16:24] LABS: BILIRUBIN,URINE NEGATIVE (NEGATIVE); CLARITY,URINE SL CLOUDY; COLOR,URINE YELLOW; GLUCOSE, URINE (UA) NEGATIVE (NEGATIVE); KETONES,URINE NEGATIVE (NEGATIVE); LEUKOCYTE ESTERASE ,URINE TRACE (NEGATIVE); NITRITE,URINE POSITIVE (NEGATIVE); PROTEIN,URINE NEGATIVE (NEGATIVE); WBC,URINE 25-50 /HPF
[2021-10-04 16:25] LABS: BACTERIA,URINE LARGE /HPF
[2021-10-04] MEDS ORDERED: ONDA4TAB11 PO (16:49)
[2021-10-04] MEDS ORDERED: NITR-65 PO (16:49)
[2021-10-04] MEDS ORDERED: METR-145 PO (16:49)
[2021-10-04 17:15] VITALS: BP 101/59
== END 2021-10-04 17:15 | disposition home or self-care (01) ==
LOC: EDUNIT# 15:24 → ER FS 15:25
DX: O99.611 Diseases of the digestive system complicating pregnancy, first trimester (principal); K59.01 Slow transit constipation; O21.0 Mild hyperemesis gravidarum; O23.11 Infections of bladder in pregnancy, first trimester; N30.00 Acute cystitis without hematuria; O99.331 Smoking (tobacco) complicating pregnancy, first trimester; F17.210 Nicotine dependence, cigarettes, uncomplicated; Z3A.10 10 weeks gestation of pregnancy
CPT/HCPCS: 81000; 87077; 87088; 99283

== ENCOUNTER 2021-10-19 08:04 | Emergency (ER) | payer MEDICAID ==
[~2021-10-19] VITALS: Ht 162.6 cm; Wt 55.3 kg
[~2021-10-19 08:04] MED LIST changes: +METR-145 PO; +NITR-65 PO
[2021-10-19] MEDS ORDERED: NS IV 1000 ML 1,000 ML IV STA (08:19)
[2021-10-19 08:25] LABS: BASOPHILS % (AUTO) 0 % (0-10); EOSINOPHILS # (AUTO) 0.1 10^3/uL (0.0-0.3); EOSINOPHILS % (AUTO) 1 % (0-10); HEMATOCRIT 35 % (35-52); HEMOGLOBIN 12.3 g/dL (11.5-16.0); LYMPHOCYTES % (AUTO) 37 % (12-44); MEAN CORPUSCULAR HEMOGLOBIN 33 pg (25-34); MEAN CORPUSCULAR HGB CONC 35 g/dL (32-36); MEAN CORPUSCULAR VOLUME 94 fL (80-99); MONOCYTES # (AUTO) 0.6 10^3/uL (0.0-1.0); MONOCYTES % (AUTO) 8 % (0-12); NEUTROPHILS # (AUTO) 4.4 10^3/uL (1.8-7.8); NEUTROPHILS % (AUTO) 55 % (42-75); PLATELET COUNT 299 10^3/uL (130-400); WHITE BLOOD COUNT 8.1 10^3/uL (4.3-11.0)
--- NOTE | 2021-10-19 08:29 | ED GI ---
General Chief Complaint: OB < 20 WEEKS Stated Complaint: VOMITING Nursing Triage Note: Patient states she believes she is approximately 8-9 weeks , states she had a positive home test and also had bloodwork done for Dr. Ram with a positive HCG. She states she has had two previous term pregnancies. She states she has had nausea/vomiting daily for the duration of this , states she was diagnosed with a UTI 2-3 weeks ago and was unable to finish taking all of her prescribed antibiotics d/t nausea/vomiting. She also reports she has had right flank/rib pain that is worse with deep breathing for several days. She reports some abdominal cramping and lightheadedness. She denies any vaginal bleeding or unusual discharge. Source of Information: Patient Exam Limitations: No Limitations History of Present Illness Date Seen by Provider: Oct 19, 2021 Time Seen by Provider: 08:13 Initial Comments 26yoF that is roughly 8 weeks EGA with no pertinent PMH coming in due to persistent nausea and nb/nb vomiting. Has been going on for about a month and was seen in this ER for the same previously. Zofran helps sometimes. Vomits most days. Has not had OB follow up as of yet. Mild R flank sharp pain which is intermittent and worse with vomiting. Denies any vaginal bleedings, loss of fluid like her water broke, dysuria, chest pain, shortness of breath, diarrhea, constipation, cough, fever, or any other concerns. Allergies and Home Medications Allergies Coded Allergies: No Known Drug Allergies (Unverified , 02/16/19) Patient Home Medication List Home Medication List Reviewed: Yes Alprazolam (Xanax) 0.5 Mg Tablet, 0.5 MG PO TID Prescribed by: KYLER ROSARIO on 02/16/19 1006 Cyclobenzaprine HCl (Cyclobenzaprine HCl) 10 Mg Tablet, 10 MG PO Q8H Prescribed by: ELIZABETH RAINES on 01/19/20 1439 Doxylamine Succinate (Unisom) 25 Mg Tablet, 25 MG PO BID Prescribed by: MANE MEAD on 10/19/21 0859 Metronidazole (Metronidazole) 500 Mg Tablet, 500 MG PO BID Prescribed by: MANE MEAD on 10/04/21 1649 Naproxen (Naprosyn) 500 Mg Tablet, 500 MG PO BID Prescribed by: ELIZABETH RAINES on 01/19/20 1439 Nitrofurantoin Monohyd/M-Cryst (Macrobid 100 mg Capsule) 100 Mg Capsule, 1 TAB PO BID Prescribed by: MANE MEAD on 10/04/21 1649 Ondansetron (Ondansetron Odt) 4 Mg Tab.rapdis, 4 MG PO Q4H PRN for NAUSEA-1ST LINE Prescribed by: KAVYA ESTES on 01/30/20 2305 Ondansetron (Ondansetron Odt) 4 Mg Tab.rapdis, 4 MG PO Q6H PRN for NAUSEA/VOMITING-1ST LINE Prescribed by: MANE MEAD on 10/04/21 1649 Ondansetron (Ondansetron Odt) 4 Mg Tab.rapdis, 4 MG PO Q6H PRN for NAUSEA/VOMITING-1ST LINE Prescribed by: MANE MEAD on 10/19/21 0859 Prochlorperazine Maleate (Compazine) 10 Mg Tablet, 10 MG PO Q8H Prescribed by: JD BRAXTON on 11/30/19 1848 Promethazine HCl (Promethazine Tablet) 25 Mg Tablet, 25 MG PO Q6H PRN for NAUSEA/VOMITING-2ND LINE Prescribed by: MANE MEAD on 10/19/21 0859 Pyridoxine HCl (Pyridoxine HCl) 25 Mg Tablet, 25 MG PO TID Prescribed by: MANE MEAD on 10/19/21 0859 Tramadol HCl (Tramadol HCl) 50 Mg Tablet, 100 MG PO Q6H PRN for PAIN Prescribed by: JD BRAXTON on 11/30/19 184 Review of Systems Review of Systems Constitutional: No fever EENTM: No Blurred Vision Respiratory: Denies Cough Cardiovascular: Denies Chest Pain Gastrointestinal: Nausea, Vomiting Genitourinary: Denies Burning Musculoskeletal: no symptoms reported Skin: no symptoms reported Psychiatric/Neurological: No Symptoms Reported Endocrine: No Symptoms Reported Hematologic/Lymphatic: No Symptoms Reported All Other Systems Reviewed Negative Unless Noted: Yes Past Ukthvmu-Cemuaf-Skeuvy Hx Patient Social History Tobacco Use?: Yes Tobacco type used: Cigarettes Smoking Status: Current Everyday Smoker Substance use?: Yes Substance type: Marijuana Substance frequency: Couple times a week Alcohol Use?: No Pt feels they are or have been: No Immunizations Up To Date Tetanus Booster (TDap): Less than 5yrs First/Initial COVID19 Vaccinat: Not currently vaccinated Seasonal Allergies Seasonal Allergies: No Past Medical History Surgery/Hospitalization HX: None Surgeries: No Respiratory: No Cardiac: No Neurological: Yes Headaches /Migraines Genitourinary: Yes Kidney Infection Gastrointestinal: No Musculoskeletal: No Endocrine: No HEENT: No Cancer: No Psychosocial: Yes Anxiety Integumentary: No Blood Disorders: No Physical Exam Vital Signs Vital Signs - First Documented 10/19/21 08:08 Temp 36.8 Pulse 99 Resp 16 B/P (MAP) 119/89 (99) Pulse Ox 100 O2 Delivery Room Air Capillary Refill : Less Than 3 Seconds Height/Weight/BMI Height: '" Weight: lbs. oz. kg; 20.00 BMI Method: General Appearance: WD/WN, no apparent distress HEENT: PERRL/EOMI, normal ENT inspection, pharynx normal Neck: non-tender, full range of motion, supple, normal inspection Respiratory: chest non-tender, lungs clear, normal breath sounds, no respiratory distress, no accessory muscle use Cardiovascular: regular rate, rhythm, no edema, no murmur Gastrointestinal: normal bowel sounds, non tender, soft; No distended, No guarding, No rebound Extremities: normal range of motion, non-tender, normal inspection, no pedal edema, no calf tenderness, normal capillary refill Back: normal inspection, no CVA tenderness, no vertebral tenderness Neurologic/Psychiatric: no motor/sensory deficits, alert, normal mood/affect Skin: normal color, warm/dry Lymphatic: no adenopathy Progress/Results/Core Measures Results/Orders Lab Results Laboratory Tests Test 10/19/21 08:05 10/19/21 08:15 Range/Units Urine Color PALE YELLOW Urine Clarity CLEAR Urine pH 6.5 5-9 Urine Specific [place] <=1.005 1.016-1.022 Urine Protein NEGATIVE NEGATIVE Urine Glucose (UA) 3+ H NEGATIVE Urine Ketones NEGATIVE NEGATIVE Urine Nitrite NEGATIVE NEGATIVE Urine Bilirubin NEGATIVE NEGATIVE Urine Urobilinogen 0.2 < = 1.0 MG/DL Urine Leukocyte Esterase NEGATIVE NEGATIVE Urine RBC (Auto) NEGATIVE NEGATIVE Urine RBC NONE /HPF Urine WBC RARE /HPF Urine Squamous Epithelial Cells 0-2 /HPF Urine Crystals NONE /LPF Urine Bacteria TRACE /HPF Urine Casts NONE /LPF Urine Mucus NEGATIVE /LPF Urine Culture Indicated NO White Blood Count 8.1 4.3-11.0 10^3/uL Red Blood Count 3.71 L 3.80-5.11 10^6/uL Hemoglobin 12.3 11.5-16.0 g/dL Hematocrit 35 35-52 % Mean Corpuscular Volume 94 80-99 fL Mean Corpuscular Hemoglobin 33 25-34 pg Mean Corpuscular Hemoglobin Concent 35 32-36 g/dL Red Cell Distribution Width 12.5 10.0-14.5 % Platelet Count 299 130-400 10^3/uL Mean Platelet Volume 9.0 9.0-12.2 fL Immature Granulocyte % (Auto) 0 % Neutrophils (%) (Auto) 55 42-75 % Lymphocytes (%) (Auto) 37 12-44 % Monocytes (%) (Auto) 8 0-12 % Eosinophils (%) (Auto) 1 0-10 % Basophils (%) (Auto) 0 0-10 % Neutrophils # (Auto) 4.4 1.8-7.8 10^3/uL Lymphocytes # (Auto) 3.0 1.0-4.0 10^3/uL Monocytes # (Auto) 0.6 0.0-1.0 10^3/uL Eosinophils # (Auto) 0.1 0.0-0.3 10^3/uL Basophils # (Auto) 0.0 0.0-0.1 10^3/uL Immature Granulocyte # (Auto) 0.0 0.0-0.1 10^3/uL Sodium Level 137 135-145 MMOL/L Potassium Level 3.9 3.6-5.0 MMOL/L Chloride Level 104 98-107 MMOL/L Carbon Dioxide Level 21 21-32 MMOL/L Anion Gap 12 5-14 MMOL/L Blood Urea Nitrogen 7 7-18 MG/DL Creatinine 0.53 L 0.60-1.30 MG/DL Estimat Glomerular Filtration Rate 130 BUN/Creatinine Ratio 13 Glucose Level 97 70-105 MG/DL Calcium Level 9.0 8.5-10.1 MG/DL Corrected Calcium 8.9 8.5-10.1 MG/DL Total Bilirubin 0.2 0.1-1.0 MG/DL Aspartate Amino Transf (AST/SGOT) 20 5-34 U/L Alanine Aminotransferase (ALT/SGPT) 14 0-55 U/L Alkaline Phosphatase 63 40-136 U/L Total Protein 6.7 6.4-8.2 GM/DL Albumin 4.1 3.2-4.5 GM/DL Lipase 27 8-78 U/L Human Chorionic Gonadotropin, Quant 89587 H <5 MIU/ML My Orders Orders - MANE MEAD MD Cbc With Automated Diff (10/19/21 08:19) Comprehensive Metabolic Panel (10/19/21 08:19) Hcg,Quantitative (10/19/21 08:19) Lipase (10/19/21 08:19) Ua Culture If Indicated (10/19/21 08:19) Ondansetron Injection (Zofran Injectio (10/19/21 08:30) Diphenhydramine Injection (Benadryl Inje (10/19/21 08:30) D5 Lr Iv Solution (Dextrose 5%/Lactated (10/19/21 08:30) Acetaminophen Tablet (Tylenol Tablet) (10/19/21 08:30) Medications Given in ED Current Medications Medications Dose Ordered Sig/Miguel Route Start Time Stop Time Status Last Admin Dose Admin Acetaminophen 1,000 mg ONCE ONCE PO 10/19/21 08:30 10/19/21 08:31 DC 10/19/21 08:38 1,000 MG Diphenhydramine HCl 25 mg ONCE ONCE IVP 10/19/21 08:30 10/19/21 08:31 DC 10/19/21 08:38 25 MG Ondansetron HCl 4 mg ONCE ONCE IVP 10/19/21 08:30 10/19/21 08:31 DC 10/19/21 08:38 4 MG Vital Signs/I&O 10/19/21 08:08 Temp 36.8 Pulse 99 Resp 16 B/P (MAP) 119/89 (99) Pulse Ox 100 O2 Delivery Room Air Blood Pressure Mean: 99 Progress Progress Note : Progress Note 26-year-old female with above history coming in due to nausea and vomiting in the setting of being . ABCs were intact and vitals were stable on pre sentation. Physical exam reassuring including a soft and nontender abdomen. Basic labs obtained including LFTs and urinalysis. These were reassuring. She was given IV Zofran, Benadryl, and D5 LR with she says near complete resolution of her nausea currently. I did a [id number] ultrasound of the fetus with heart rate around 160 with movement. I believe the patient is stable for discharge with outpatient follow-up. Nausea medicines were refilled at her pharmacy. She was sent home with strict return precautions. Prior to discharge, she is tolerating p.o. fluids. Departure Impression Primary Impression: Nausea and vomiting during Disposition: HOME, SELF-CARE Condition: Improved Departure-Patient Inst. Decision time for Depature: 09:31 Ref[facility]: [facility] [place] Primary Care Physician LILIANA RAM DO Patient Instructions: Morning Sickness (DC) Add. Discharge Instructions: Multiple prescriptions were sent to [facility]. One of them is doxylamine which I want you to take every night, and you can take it again in the morning as well. You will also schedule pyridoxine (which is vitamin B6, helps a lot with nausea in ). You will take this 3 times a day. I also refilled the Zofran and added Phenergan if things are not helpful with Zofran. Follow-up with Dr. Ram so that he can do a formal ultrasound of the baby to make sure everything is looking okay as well as potentially get you on medicines that could help more. Scripts Pyridoxine HCl (Pyridoxine HCl) 25 Mg Tablet 25 MG PO TID for 30 Days, #90 TAB Prov: MANE MEAD MD 10/19/21 Promethazine HCl (Promethazine Tablet) 25 Mg Tablet 25 MG PO Q6H PRN for NAUSEA/VOMITING-2ND LINE for 5 Days, #20 TAB Prov: MANE MEAD MD 10/19/21 Ondansetron (Ondansetron Odt) 4 Mg Tab.rapdis 4 MG PO Q6H PRN for NAUSEA/VOMITING-1ST LINE for 7 Days, #28 TAB Prov: MANE MEAD MD 10/19/21 Doxylamine Succinate (Unisom) 25 Mg Tablet 25 MG PO BID for 30 Days, #60 TAB Prov: MANE MEAD MD 10/19/21 Work/School Note: Work Release Form Date Seen in the Emergency Department: Oct 19, 2021 Return to Work: Oct 21, 2021 Restrictions: No Restrictions MANE MEAD MD Oct 19, 2021 08:29
[2021-10-19] MEDS ORDERED: ONDANSETRON 4 MG/2 ML (SDV) Z0FRAN IVP ONE (08:30)
[2021-10-19] MEDS ORDERED: diphenhydrAMINE 50 MG/ML INJ (BENADRYL) IVP ONE (08:30)
[2021-10-19] MEDS ORDERED: D5 LR IV SOLUTION 1,000 ML IV SCH (08:30)
[2021-10-19] MEDS ORDERED: ACETAMINOPHEN 500 MG TAB (TYLENOL) PO ONE (08:30)
[2021-10-19] MEDS ORDERED: ONDA4TAB11 PO (08:59)
[2021-10-19] MEDS ORDERED: DOXY25TA56 PO (08:59)
[2021-10-19] MEDS ORDERED: PYRI25TA4 PO (08:59)
[2021-10-19] MEDS ORDERED: PROM25TA14 PO (08:59)
[2021-10-19 09:07] LABS: POTASSIUM 3.9 MMOL/L (3.6-5.0)
[2021-10-19 09:08] LABS: ALBUMIN 4.1 GM/DL (3.2-4.5); BILIRUBIN,TOTAL 0.2 MG/DL (0.1-1.0); CREATININE SERUM 0.53 MG/DL (0.60-1.30); TOTAL PROTEIN 6.7 GM/DL (6.4-8.2)
[2021-10-19 09:22] LABS: BILIRUBIN,URINE NEGATIVE (NEGATIVE); CLARITY,URINE CLEAR; GLUCOSE, URINE (UA) 3+ (NEGATIVE); KETONES,URINE NEGATIVE (NEGATIVE); LEUKOCYTE ESTERASE ,URINE NEGATIVE (NEGATIVE); NITRITE,URINE NEGATIVE (NEGATIVE); PH,URINE 6.5 (5-9); PROTEIN,URINE NEGATIVE (NEGATIVE)
[2021-10-19 09:28] LABS: BACTERIA,URINE TRACE /HPF; COLOR,URINE PALE YELLOW; SQUAMOUS EPITHELIAL CELL,UR 0-2 /HPF; WBC,URINE RARE /HPF
[2021-10-19 09:42] VITALS: BP 114/74
== END 2021-10-19 09:33 | disposition home or self-care (01) ==
LOC: EDUNIT# 08:04 → ER FS 08:05
DX: O21.0 Mild hyperemesis gravidarum (principal); O99.331 Smoking (tobacco) complicating pregnancy, first trimester; F17.210 Nicotine dependence, cigarettes, uncomplicated; Z28.310 Unvaccinated for COVID-19; Z3A.00 Weeks of gestation of pregnancy not specified
CPT/HCPCS: 36415; 80053; 81000; 83690; 84702; 85025

== ENCOUNTER 2021-11-23 10:55 | Emergency (ER) | payer MEDICAID ==
[~2021-11-23] VITALS: Ht 162.5 cm; Wt 58.0 kg
[~2021-11-23 10:55] MED LIST changes: +DOXY25TA56 PO; +PROM25TA14 PO; +PYRI25TA4 PO
[2021-11-23 12:14] LABS: BILIRUBIN,URINE NEGATIVE (NEGATIVE); CLARITY,URINE SL CLOUDY; COLOR,URINE YELLOW; GLUCOSE, URINE (UA) NEGATIVE (NEGATIVE); KETONES,URINE NEGATIVE (NEGATIVE); LEUKOCYTE ESTERASE ,URINE NEGATIVE (NEGATIVE); NITRITE,URINE NEGATIVE (NEGATIVE); PROTEIN,URINE NEGATIVE (NEGATIVE)
[2021-11-23] MEDS ORDERED: ACETAMINOPHEN 325 MG TABLET PO ONE (12:15)
[2021-11-23 12:37] LABS: BACTERIA,URINE MODERATE /HPF
[2021-11-23 12:38] LABS: SQUAMOUS EPITHELIAL CELL,UR 25-50 /HPF
--- NOTE | 2021-11-23 12:39 | Diagnostic Imaging Report ---
INDICATION: and pelvic pain after a fall. TECHNIQUE: Multiple real-time grayscale images were obtained over the gravid uterus. COMPARISON: None FINDINGS: There is a single live fetus in a breech presentation. heart rate was recorded at 142 bpm. Placenta is posterior and low lying. Placental tip to the internal os is approximately 1.8 cm. No retroplacental fluid collection or abruption is identified. Amniotic fluid volume is normal. Cervical length is 6.5 cm. Biometrical measurements are as follows: Biparietal 4.26 cm, age 19 weeks 0 days. Head circumference 16.06 cm, age 19 weeks 0 days. Abdominal circumference 13.22 cm, age 18 weeks 6 days. Femur length 2.83 cm, age 18 weeks 5 days. Sonographic estimate age: 19 weeks 0 days. Sonographic estimated date of delivery: 04/19/2022. Estimated Weight: 254 gm (+/- 37 gm). LMP percentile: NA%. heart rate: 142 beats per minute. number: 1 of 1. IMPRESSION: Single live IUP approximately 19 weeks gestational age. There is a posterior low-lying placenta. No complicating features are detected. Dictated by: Dictated on workstation # [id number]
--- NOTE | 2021-11-23 13:01 | ED GU-Female ---
General Chief Complaint: OB < 20 WEEKS Stated Complaint: SUPRAPUBIC PAIN Nursing Triage Note: Patient presents to the ED at 15 weeks gestation. Reports lower abdomen/pelvic pain and burning with urination. [place] reports she stepped over an object and felt something tear. Denies any fever or vaginal bleeding. Source: patient History of Present Illness Date Seen by Provider: Nov 23, 2021 Time Seen by Provider: 10:56 Initial Comments Patient is a 26-year-old, G3, P2, estimated 15-week gestation female presents with lower pelvic pain described as sharp and burning after raising her leg over her abdomen while straddling a fence. Pain is mild to moderate. No medication taken prior to ED arrival. Patient did not injure her pelvis or fall. She denies report urinary frequency urgency and burning. She denies hematuria, vaginal discharge or bleeding. She denies complications with current . No other symptoms or complaints Timing/Duration: just prior to arrival Severity/Quality: moderate Location: other Radiation: other Activities at Onset: other Sexual [place] History: other Modifying Factors: Improves With Other Associated Symptoms: other Allergies and Home Medications Allergies Coded Allergies: No Known Drug Allergies (Unverified , 02/16/19) Patient Home Medication List Home Medication List Reviewed: Yes Alprazolam (Xanax) 0.5 Mg Tablet, 0.5 MG PO TID Prescribed by: KYLER ROSARIO on 02/16/19 1006 Cyclobenzaprine HCl (Cyclobenzaprine HCl) 10 Mg Tablet, 10 MG PO Q8H Prescribed by: ELIZABETH RAINES on 01/19/20 1439 Doxylamine Succinate (Unisom) 25 Mg Tablet, 25 MG PO BID Prescribed by: MANE MEAD on 10/19/21 0859 Metronidazole (Metronidazole) 500 Mg Tablet, 500 MG PO BID Prescribed by: MANE MEAD on 10/04/21 1649 Naproxen (Naprosyn) 500 Mg Tablet, 500 MG PO BID Prescribed by: ELIZABETH RAINES on 01/19/20 1439 Nitrofurantoin Monohyd/M-Cryst (Macrobid 100 mg Capsule) 100 Mg Capsule, 1 TAB PO BID Prescribed by: MANE MEAD on 10/04/21 1649 Ondansetron (Ondansetron Odt) 4 Mg Tab.rapdis, 4 MG PO Q4H PRN for NAUSEA-1ST LINE Prescribed by: KAVYA ESTES on 01/30/20 2305 Ondansetron (Ondansetron Odt) 4 Mg Tab.rapdis, 4 MG PO Q6H PRN for NAUSEA/VOMITING-1ST LINE Prescribed by: MANE MEAD on 10/04/21 1649 Ondansetron (Ondansetron Odt) 4 Mg Tab.rapdis, 4 MG PO Q6H PRN for ANGELIC SEA/VOMITING-1ST LINE Prescribed by: MANE MEAD on 10/19/21 0859 Prochlorperazine Maleate (Compazine) 10 Mg Tablet, 10 MG PO Q8H Prescribed by: JD BRAXTON on 11/30/19 1848 Promethazine HCl (Promethazine Tablet) 25 Mg Tablet, 25 MG PO Q6H PRN for NAUSEA/VOMITING-2ND LINE Prescribed by: MANE MEAD on 10/19/21 0859 Pyridoxine HCl (Pyridoxine HCl) 25 Mg Tablet, 25 MG PO TID Prescribed by: MANE MEAD on 10/19/21 0859 Tramadol HCl (Tramadol HCl) 50 Mg Tablet, 100 MG PO Q6H PRN for PAIN Prescribed by: JD BRAXTON on 11/30/19 1848 Review of Systems Review of Systems Constitutional: see HPI EENTM: see HPI Respiratory: see HPI Cardiovascular: see HPI Gastrointestinal: see HPI Genitourinary: see HPI Musculoskeletal: see HPI Skin: see HPI Psychiatric/Neurological: See HPI Endocrine: See HPI Hematologic/Lymphatic: See HPI All Other Systemes Reviewed Negative Unless Noted: No Past Xxlaakw-Jcityh-Irckat Hx Patient Social History Tobacco Use?: Yes Tobacco type used: Cigarettes Substance use?: No Alcohol Use?: No Pt feels they are or have been: No Immunizations Up To Date Tetanus Booster (TDap): Less than 5yrs First/Initial COVID19 Vaccinat: Not currently vaccinated Second COVID19 Vaccination Khari: Not currently vaccinated Third COVID19 Vaccination Date: Not currently vaccinated Seasonal Allergies Seasonal Allergies: No Past Medical History Surgery/Hospitalization HX: None Surgeries: No Respiratory: No Cardiac: No Neurological: Yes Headaches /Migraines Genitourinary: Yes Kidney Infection Gastrointestinal: No Musculoskeletal: No Endocrine: No HEENT: No Cancer: No Psychosocial: Yes Anxiety Integumentary: No Blood Disorders: No Physical Exam Vital Signs Vital Signs - First Documented 11/23/21 11:14 Temp 36.7 Pulse 102 Resp 18 B/P (MAP) 116/64 (81) Pulse Ox 100 O2 Delivery Room Air Capillary Refill : Less Than 3 Seconds Height, Weight, BMI Height: '" Weight: lbs. oz. kg; 21.00 BMI Method: General Appearance: WD/WN, no apparent distress Gastrointestinal: non tender, soft, other (Gravid abdomen, below umbilicus) Back: normal inspection, no CVA tenderness Focused Exam Sepsis Stage: Ruled Out Progress/Results/Core Measures Suspected Sepsis SIRS Temperature: Pulse: 102 Respiratory Rate: 18 Blood Pressure 116 /64 Mean: 81 Results/Orders Lab Results Laboratory Tests Test 11/23/21 12:08 Range/Units Urine Color YELLOW Urine Clarity [place] Urine pH 7.0 5-9 Urine Specific [place] 1.010 L 1.016-1.022 Urine Protein NEGATIVE NEGATIVE Urine Glucose (UA) NEGATIVE NEGATIVE Urine Ketones NEGATIVE NEGATIVE Urine Nitrite NEGATIVE NEGATIVE Urine Bilirubin NEGATIVE NEGATIVE Urine Urobilinogen 0.2 < = 1.0 MG/DL Urine Leukocyte Esterase NEGATIVE NEGATIVE Urine RBC (Auto) NEGATIVE NEGATIVE Urine RBC NONE /HPF Urine WBC 2-5 /HPF Urine Squamous Epithelial Cells 25-50 H /HPF Urine Crystals NONE /LPF Urine Bacteria MODERATE H /HPF Urine Casts NONE /LPF Urine Mucus SMALL H /LPF Urine Culture Indicated NO My Orders Orders - JD BRAXTON DO Urine Bedside (11/23/21 11:02) Urinalysis (11/23/21 11:02) Acetaminophen Tablet/Caplet (Tylenol T (11/23/21 12:15) Us Ob Preg Late(14-40wks)20896 (11/23/21 ) Medications Given in ED Current Medications Medications Dose Ordered Sig/Miguel Route Start Time Stop Time Status Last Admin Dose Admin Acetaminophen 650 mg ONCE ONCE PO 11/23/21 12:15 11/23/21 12:16 DC 11/23/21 12:26 650 MG Vital Signs/I&O 11/23/21 11:14 Temp 36.7 Pulse 102 Resp 18 B/P (MAP) 116/64 (81) Pulse Ox 100 O2 Delivery Room Air Capillary Refill : Less Than 3 Seconds Blood Pressure Mean: 81 Departure Communication (Admissions) OB ultrasound: Viable 19-week IUP with low-lying placenta. Patient with abdominal wall/pelvic wall strain from leg raising. No urinary tract infection. OB ultrasound reassuring. Recommendation of supportive care watchful waiting and PCP follow-up. Return precautions reviewed. Patient verbalizes understanding agreement with discharge instructions prior to departure. Impression Primary Impression: Strain of abdominal wall Additional Impression: Second trimester Disposition: 01 HOME, SELF-CARE Condition: Stable Departure-Patient Inst. Decision time for Depature: 13:00 Referrals: [facility] [place] ([place]/Family) Primary Care Physician Patient Instructions: Abdominal Muscle Strain (DC), Movement Add. Discharge Instructions: You were evaluated in the emergency department for lower abdominal/pelvic pain during . An ultrasound was performed and shows a viable 19-week fetus with a low-lying posterior placenta. Urine sample does not show presence of urinary tract infection. Please take Tylenol for pain and avoid strenuous activity, bending and heavy lifting. Follow-up with your OB as scheduled. Return to the ED if new or worsening symptoms All discharge instructions reviewed with patient and/or family. Voiced understanding. JD BRAXTON DO Nov 23, 2021 13:01
[2021-11-23 13:08] VITALS: BP 116/64
== END 2021-11-23 13:09 | disposition home or self-care (01) ==
LOC: EDUNIT# 10:55 → ER FS 10:56
DX: O9A.212 Injury, poisoning and certain other consequences of external causes complicating pregnancy, second trimester (principal); S39.011A Strain of muscle, fascia and tendon of abdomen, initial encounter; Z28.310 Unvaccinated for COVID-19; Z3A.19 19 weeks gestation of pregnancy; X58.XXXA Exposure to other specified factors, initial encounter
CPT/HCPCS: 76805; 81000; 84703

== ENCOUNTER 2022-04-22 10:55 | Emergency (ER) | payer MEDICAID ==
--- NOTE | 2022-04-22 11:15 | ED GU-Female ---
General Chief Complaint: - Reproductive Stated Complaint: SUPRAPUBIC/HOMA FLANK PAIN; FEVER; VAGINAL ODOR Nursing Triage Note: PT REPORTS SHE RECENTLY GAVE 2 WEEKS AGO AND EVER SINCE THEN HER VAGINA HAS SMELLED LIKE "A RAT" AND SHE HAS URINARY FREQUENCY AND LOW BACK PAIN. Source: patient Exam Limitations: no limitations History of Present Illness Date Seen by Provider: Apr 22, 2022 Time Seen by Provider: 11:02 Initial Comments 26yoF that had a roughly [address] Ram coming in due to dysuria, flank pain, and fever. Dysuria has been getting worse for over a week. Fever started last night. Also noticing significant odor coming from what she believes is her vagina. She denies any discharge. The bleeding since her delivery has continued to slow down appropriately. Has been try to get in with her OB, but has been unable to get there for different reasons. Otherwise denying any cough, nausea, vomiting, diarrhea, chest pain, shortness of breath, weakness, numbness, or any other concerns Allergies and Home Medications Allergies Coded Allergies: No Known Drug Allergies (Unverified , 02/16/19) Patient Home Medication List Home Medication List Reviewed: Yes Alprazolam (Xanax) 0.5 Mg Tablet, 0.5 MG PO TID Prescribed by: KYLER ROSARIO on 02/16/19 1006 Cyclobenzaprine HCl (Cyclobenzaprine HCl) 10 Mg Tablet, 10 MG PO Q8H Prescribed by: ELIZABETH RAINES on 01/19/20 1439 Doxylamine Succinate (Unisom) 25 Mg Tablet, 25 MG PO BID Prescribed by: MANE MEAD on 10/19/21 0859 Metronidazole (Metronidazole) 500 Mg Tablet, 500 MG PO BID Prescribed by: MANE MEAD on 10/04/21 1649 Naproxen (Naprosyn) 500 Mg Tablet, 500 MG PO BID Prescribed by: ELIZABETH RAINES on 01/19/20 1439 Nitrofurantoin Monohyd/M-Cryst (Macrobid 100 mg Capsule) 100 Mg Capsule, 1 TAB PO BID Prescribed by: MANE MEAD on 10/04/21 1649 Ondansetron (Ondansetron Odt) 4 Mg Tab.rapdis, 4 MG PO Q4H PRN for NAUSEA-1ST LINE Prescribed by: KAVYA ESTES on 01/30/20 2305 Ondansetron (Ondansetron Odt) 4 Mg Tab.rapdis, 4 MG PO Q6H PRN for NAUSEA/VOMITING-1ST LINE Prescribed by: MANE MEAD on 10/04/21 1649 Ondansetron (Ondansetron Odt) 4 Mg Tab.rapdis, 4 MG PO Q6H PRN for NAUSEA/VOMITING-1ST LINE Prescribed by: MANE MEAD on 10/19/21 0859 Prochlorperazine Maleate (Compazine) 10 Mg Tablet, 10 MG PO Q8H Prescribed by: JD BRAXTON on 11/30/19 1848 Promethazine HCl (Promethazine Tablet) 25 Mg Tablet, 25 MG PO Q6H PRN for NAUSEA/VOMITING-2ND LINE Prescribed by: MANE MEAD on 10/19/21 0859 Pyridoxine HCl (Pyridoxine HCl) 25 Mg Tablet, 25 MG PO TID Prescribed by: MANE MEAD on 10/19/21 0859 Tramadol HCl (Tramadol HCl) 50 Mg Tablet, 100 MG PO Q6H PRN for PAIN Prescribed by: JD BRAXTON on 11/30/19 1848 Review of Systems Review of Systems Constitutional: fever EENTM: no symptoms reported Respiratory: no symptoms reported Cardiovascular: no symptoms reported Gastrointestinal: no symptoms reported Genitourinary: see HPI Musculoskeletal: no symptoms reported Skin: no symptoms reported Psychiatric/Neurological: No Symptoms Reported Endocrine: No Symptoms Reported Hematologic/Lymphatic: No Symptoms Reported All Other Systemes Reviewed Negative Unless Noted: Yes Past Njetmev-Dlhfwm-Zqyztm Hx Patient Social History Tobacco Use?: Yes Tobacco type used: Cigarettes Smoking Status: Current Everyday Smoker Use of E-Cig and/or Vaping dev: No Substance use?: No Alcohol Use?: No Pt feels they are or have been: No Immunizations Up To Date Tetanus Booster (TDap): Less than 5yrs First/Initial COVID19 Vaccinat: Not currently vaccinated Second COVID19 Vaccination Khari: Not currently vaccinated Third COVID19 Vaccination Date: Not currently vaccinated Seasonal Allergies Seasonal Allergies: No Past Medical History Surgery/Hospitalization HX: None Surgeries: No Respiratory: No Cardiac: No Neurological: Yes Headaches /Migraines Genitourinary: Yes Kidney Infection Gastrointestinal: No Musculoskeletal: No Endocrine: No HEENT: No Cancer: No Psychosocial: Yes Anxiety Integumentary: No Blood Disorders: No Physical Exam Vital Signs Vital Signs - First Documented 04/22/22 11:00 Temp 38.0 Pulse 110 Resp 18 B/P (MAP) 135/82 (99) Pulse Ox 99 O2 Delivery Room Air Capillary Refill : Less Than 3 Seconds Height, Weight, BMI Height: '" Weight: lbs. oz. kg; 21.00 BMI Method: General Appearance: WD/WN, no apparent distress HEENT: PERRL/EOMI, normal ENT inspection, pharynx normal Neck: non-tender, full range of motion, supple, normal inspection Cardiovascular: regular rate, rhythm, no edema, no murmur Respiratory: chest non-tender, lungs clear, normal breath sounds, no respiratory distress, no accessory muscle use Gastrointestinal: normal bowel sounds, soft; No distended, No guarding, No rebound; tenderness (suprapubic) Pelvic: normal external exam, normal adnexa, no cerv. motion tender, no masses, discharge (Clear, blood-tinged) Back: normal inspection, no vertebral tenderness, CVA tenderness (R), CVA tenderness (L) Extremities: normal range of motion, non-tender, normal inspection, no pedal edema, no calf tenderness, normal capillary refill Neurologic/Psychiatric: no motor/sensory deficits, alert, normal mood/affect Skin: normal color, warm/dry Lymphatic: no adenopathy Progress/Results/Core Measures Suspected Sepsis SIRS Temperature: Pulse: 110 Respiratory Rate: 18 Blood Pressure 135 /82 Mean: 99 Results/Orders Lab Results Laboratory Tests Test 04/22/22 11:00 Range/Units Urine Color YELLOW Urine Clarity CLOUDY Urine pH 6.5 5-9 Urine Specific [place] 1.015 L 1.016-1.022 Urine Protein NEGATIVE NEGATIVE Urine Glucose (UA) NEGATIVE NEGATIVE Urine Ketones NEGATIVE NEGATIVE Urine Nitrite NEGATIVE NEGATIVE Urine Bilirubin NEGATIVE NEGATIVE Urine Urobilinogen 0.2 < = 1.0 MG/DL Urine Leukocyte Esterase 2+ H NEGATIVE Urine RBC (Auto) 2+ H NEGATIVE Urine RBC NONE /HPF Urine WBC 10-25 H /HPF Urine Squamous Epithelial Cells 2-5 /HPF Urine Crystals NONE /LPF Urine Bacteria TRACE /HPF Urine Casts NONE /LPF Urine Mucus NEGATIVE /LPF Urine Culture Indicated YES Micro Results Microbiology 04/22/22 Wet Prep - Final, Complete My Orders Orders - MAEN MEAD MD Ua Culture If Indicated (04/22/22 11:04) Wet Prep (04/22/22 11:18) Urine Culture (04/22/22 11:00) Vital Signs/I&O 04/22/22 11:00 Temp 38.0 Pulse 110 Resp 18 B/P (MAP) 135/82 (99) Pulse Ox 99 O2 Delivery Room Air Capillary Refill : Less Than 3 Seconds Blood Pressure Mean: 99 Progress Note : Progress Note 26-year-old female with above history coming in due to vaginal discharge with a foul odor as well as burning with urination. ABCs were intact and vitals were stable on presentation. Physical exam with mild suprapubic tenderness as well as vaginal discharge that is clear with some blood tinge. Expect some blood given the recent delivery. Urinalysis concerning for infection. Wet prep obtained and shows numerous clue cells consistent with bacterial vaginosis. Urinalysis also concerning for infection. We will treat her for both infections at this time. I believe she is otherwise stable for discharge with outpatient f ollow-up. She was sent home with strict return precautions Departure Impression Primary Impression: Bacterial vaginosis Additional Impression: Cystitis Disposition: HOME, SELF-CARE Condition: Stable Departure-Patient Inst. Decision time for Depature: 11:38 Referrals: [facility] (PCP/Family) Primary Care Physician Patient Instructions: Bacterial Vaginosis ED, Urinary Tract Infection, Adult (DC) Add. Discharge Instructions: You do have 2 different infections, one in your bladder, and one actually within the vagina around the cervix. You will be on 2 different antibiotics. Please be sure to finish these antibiotics. Please have an appointment to follow-up with your OB in the next week to be sure things are improving. Scripts Cefdinir (Cefdinir) 300 Mg Capsule 300 MG PO BID for 10 Days, #20 CAP 0 Refills Prov: MANE MEAD MD 04/22/22 Metronidazole (Metronidazole) 500 Mg Tablet 500 MG PO BID for 7 Days, #14 TAB 0 Refills Prov: MANE MEAD MD 04/22/22 Work/School Note: Work Release Form Date Seen in the Emergency Department: Apr 22, 2022 Return to Work: Apr 25, 2022 Restrictions: No Restrictions MANE MEAD MD Apr 22, 2022 11:15
[2022-04-22 11:17] LABS: BILIRUBIN,URINE NEGATIVE (NEGATIVE); CLARITY,URINE CLOUDY; COLOR,URINE YELLOW; GLUCOSE, URINE (UA) NEGATIVE (NEGATIVE); KETONES,URINE NEGATIVE (NEGATIVE); LEUKOCYTE ESTERASE ,URINE 2+ (NEGATIVE); NITRITE,URINE NEGATIVE (NEGATIVE); PH,URINE 6.5 (5-9); PROTEIN,URINE NEGATIVE (NEGATIVE)
[2022-04-22 11:30] LABS: BACTERIA,URINE TRACE /HPF
[2022-04-22] MEDS ORDERED: METR-145 PO (11:39)
[2022-04-22] MEDS ORDERED: CEFD300C3 PO (11:39)
[2022-04-22 11:41] VITALS: BP 135/82
[2022-04-22] MEDS ORDERED: CEFDINIR 300 MG (OMNICEF) CAP PO ONE (11:45)
[2022-04-22] MEDS ORDERED: IBUPROFEN 600 MG (MOTRIN) TAB PO ONE (11:45)
[2022-04-22] MEDS ORDERED: metroNIDAZOLE 500 MG (FLAGYL) TAB PO ONE (11:45)
== END 2022-04-22 11:50 | disposition home or self-care (01) ==
LOC: EDUNIT# 10:55 → ER FS 10:57
DX: O86.13 Vaginitis following delivery (principal); O86.22 Infection of bladder following delivery; B96.89 Other specified bacterial agents as the cause of diseases classified elsewhere; O99.335 Smoking (tobacco) complicating the puerperium; F17.210 Nicotine dependence, cigarettes, uncomplicated; Z28.310 Unvaccinated for COVID-19
CPT/HCPCS: 81000; 84703; 87088; 87210; 99284

== ENCOUNTER 2022-11-24 10:44 | Emergency (ER) | payer MEDICAID ==
[~2022-11-24] VITALS: Ht 162 cm; Wt 62.5 kg
[~2022-11-24 10:44] MED LIST changes: +CEFD300C3 PO
[2022-11-24 11:11] VITALS: BP 123/75
--- NOTE | 2022-11-24 11:57 | ED EENT ---
History of Present Illness General Chief Complaint: Oral/Throat Problems Stated Complaint: SORE THROAT | INFECTION Nursing Triage Note: Pt presents to ER with complaints of FB sensation in throat, reports onset of symptoms >3months ago. Pt reports that she is scheduled for outpt CT with contrast at 1330 today. Pt reports that she couldnt wait for CT scan due to "I feel like I'm going to seize out". Pt swallowing secreations without difficulty and no signs of respiratory distress noted Source: patient Exam Limitations: no limitations History of Present Illness Date Seen by Provider: Nov 24, 2022 Time Seen by Provider: 11:43 Initial Comments Patient is a 27yo female who presents to the ER with a complaint of right neck pain and concern for foreign body. She states 3 months ago she was using an inhaler and believes she inhaled something foreign from the inhaler. She states she has felt it "move" from just under the right mandible down to the lower lateral right neck. She states she has had a sore throat and been on at least 3 rounds of antibiotics (finished the last course about a week ago). She states it hurts to swallow. No voice changes. she thinks she has lost a lot of weight in the last week. She thinks that something is "sticking" her in her right neck. No fevers. She just doesn't "feel right". Nausea. LMP 10/19/22. On depo. Takes medications for mental health. Does Vape. Timing/Duration: gradual, other (months) Severity: moderate Location: throat ((neck)) Prearrival Treatment: over the counter meds Associated Symptoms: No cough, No drooling, No facial pain/swelling, No nasal congestion/drainage; sore throat; No voice change Allergies and Home Medications Allergies Coded Allergies: No Known Drug Allergies (Unverified , 02/16/19) Patient Home Medication List Home Medication List Reviewed: Yes Alprazolam (Xanax) 0.5 Mg Tablet, 0.5 MG PO TID Prescribed by: KYLER ROSARIO on 02/16/19 1006 Cefdinir (Cefdinir) 300 Mg Capsule, 300 MG PO BID Prescribed by: MANE MEAD on 04/22/22 1139 Cyclobenzaprine HCl (Cyclobenzaprine HCl) 10 Mg Tablet, 10 MG PO Q8H Prescribed by: ELIZABETH RAINES on 01/19/20 1439 Doxylamine Succinate (Unisom) 25 Mg Tablet, 25 MG PO BID Prescribed by: MANE MEAD on 10/19/21 0859 Metronidazole (Metronidazole) 500 Mg Tablet, 500 MG PO BID Prescribed by: MANE MEAD on 10/04/21 1649 Metronidazole (Metronidazole) 500 Mg Tablet, 500 MG PO BID Prescribed by: MANE MEAD on 04/22/22 1139 Naproxen (Naprosyn) 500 Mg Tablet, 500 MG PO BID Prescribed by: ELIZABETH RAINES on 01/19/20 1439 Nitrofurantoin Monohyd/M-Cryst (Macrobid 100 mg Capsule) 100 Mg Capsule, 1 TAB PO BID Prescribed by: MANE MEAD on 10/04/21 1649 Ondansetron (Ondansetron Odt) 4 Mg Tab.rapdis, 4 MG PO Q4H PRN for NAUSEA-1ST LINE Prescribed by: KAVYA ESTES on 01/30/20 2305 Ondansetron (Ondansetron Odt) 4 Mg Tab.rapdis, 4 MG PO Q6H PRN for NAUSEA/VOMITING-1ST LINE Prescribed by: MANE MEAD on 10/04/21 1649 Ondansetron (Ondansetron Odt) 4 Mg Tab.rapdis, 4 MG PO Q6H PRN for NAUSEA/VOMITING-1ST LINE Prescribed by: MANE MEAD on 10/19/21 0859 Prochlorperazine Maleate (Compazine) 10 Mg Tablet, 10 MG PO Q8H Prescribed by: JD BRAXTON on 11/30/19 184 Promethazine HCl (Promethazine Tablet) 25 Mg Tablet, 25 MG PO Q6H PRN for NAUSEA/VOMITING-2ND LINE Prescribed by: MANE MEAD on 10/19/21 0859 Pyridoxine HCl (Pyridoxine HCl) 25 Mg Tablet, 25 MG PO TID Prescribed by: MANE MEAD on 10/19/21 0859 Tramadol HCl (Tramadol HCl) 50 Mg Tablet, 100 MG PO Q6H PRN for PAIN Prescribed by: JD BRAXTON on 11/30/19 184 Review of Systems Review of Systems Constitutional: see HPI Mouth: no symptoms reported Throat: pain Respiratory: no symptoms reported Cardiovascular: no symptoms reported Gastrointestinal: no symptoms reported Musculoskeletal: no symptoms reported Skin: no symptoms reported Past Fjjirxe-Eankur-Xcnslq Hx Patient Social History E-Cig or Vaping type used: Other Use of E-Cig and/or Vaping Bruce: Current Everyday User Substance use?: No Alcohol Use?: No Pt feels they are or have been: No Immunizations Up To Date Tetanus Booster (TDap): Less than 5yrs Influenza Vaccine Up-to-Date: Yes; Up-to-Date First/Initial COVID19 Vaccinat: not vaccinated Second COVID19 Vaccination Khari: Not currently vaccinated Third COVID19 Vaccination Date: Not currently vaccinated Seasonal Allergies Seasonal Allergies: No Past Medical History Surgery/Hospitalization HX: depression, seizures Surgeries: No Respiratory: No Cardiac: No Neurological: Yes Headaches /Migraines Genitourinary: Yes Kidney Infection Gastrointestinal: No Musculoskeletal: No Endocrine: No HEENT: No Cancer: No Psychosocial: Yes Anxiety Integumentary: No Blood Disorders: No Physical Exam Vital Signs Vital Signs - First Documented 11/24/22 11:11 Temp 37.2 Pulse 105 Resp 16 B/P (MAP) 123/75 (91) Pulse Ox 98 O2 Delivery Room Air Height, Weight, BMI Height: '" Weight: lbs. oz. kg; 23.00 BMI Method: General Appearance: WD/WN, no apparent distress, thin Eyes: bilateral eye normal inspection, bilateral eye PERRL, bilateral eye EOMI Mouth/Throat: normal mouth inspection, pharynx normal; No excessive drooling, No pharynx swelling, No tongue swollen, No tonsillar swelling, No uvula swelling, No voice changes Neck: non-tender, full range of motion, supple, normal inspection; No limited range of motion, No lymphadenopathy (R), No lymphadenopathy (L); tender lateral (right side) Cardiovascular: regular rate, rhythm Respiratory: lungs clear, normal breath sounds, no respiratory distress, no accessory muscle use Gastrointestinal: soft Neurologic/Psychiatric: alert, normal mood/affect, oriented x 3 Skin: normal color, warm/dry Progress/Results/Core Measures Results/Orders My Orders Orders - DONNY FAJARDO MD Soft Tissue Neck (11/24/22 11:49) Vital Signs/I&O 7/13/23 11:11 Temp 37.2 Pulse 105 Resp 16 B/P (MAP) 123/75 (91) Pulse Ox 98 O2 Delivery Room Air Blood Pressure Mean: 91 Progress Progress Note : Time: 12:34 Progress Note Patient seen and evaluated by me - evaluation today includes review of old records, physical exam and soft tissue xray of neck. Pertinent physical exam findings - WDWN female who appears anxious and concerned about possible foreign body in the neck. No hoarseness or voice change. No coughing/gagging. Lungs are clear. Neck exam does not demonstrate any swelling/masses/crepitance. No LAD appreciated. OP is clear with atrophied tonsils and no erythema or exudate. DDx based on H&P - foreign body vs illness anxiety Xrays independently reviewed by me - radiology has read the films as well. No obvious soft tissue abnormalities. No obvious foreign body. Patient is encouraged to keep her appointment for her CT. No clinical concerns at this time for emergent CT scan of the neck. She exhibits no airway compromise or problems with secretions. Conservative management advised and close follow up with her primary care. Diagnostic Imaging Diagonstic Imaging: Xray Comments [facility]. [place], [place] NAME: RAGHU PEREIRA [facility] REC#: [id number] PT STATUS: REG ER : 1995 PHYSICIAN: DONNY FAJARDO MD ADMIT DATE: 11/24/22/ER Draft Date of Exam:11/24/22 SOFT TISSUE NECK CLINICAL INDICATION: Patient has foreign body sensation in throat and reports symptoms greater than three months. EXAM: X-ray of the neck soft tissue, AP and lateral views. COMPARISON: CT angiogram of the neck with contrast dated 01/19/2020. FINDINGS: There is no retropharyngeal thickening seen. There are small areas of increased density superiorly and anterior to the thyroid cartilage region which is also noted on the prior CT angiogram and likely related to cartilaginous calcification. Hyoid bone appears grossly similar. There is no soft tissue air or radiodense foreign object. There are degenerative spurs anteriorly involving the C4 through C7 levels with mild loss of disk space height. IMPRESSION: 1: There is no soft tissue air or radiodense foreign object seen on this exam. There is no significant abnormality, as visualized. CT scan of the neck would better evaluate. 2: Cervical spine degenerative disease. Dictated on workstation # [id number] Dict: 11/24/22 1210 Trans: 11/24/22 1217 [id number] Interpreted by: HUSSEIN BOOKER MD Electronically signed by: Departure Impression Primary Impression: Neck pain on right side Disposition: 01 HOME, SELF-CARE Condition: Stable Departure-Patient Inst. Decision time for Depature: 12:32 Referrals: KATHERIN MAYS APRN (PCP/Family) Primary Care Physician Add. Discharge Instructions: Keep your appointment for your CT scan of the neck. Use Ibuprofen 600mg (3 tablets) every 6 hours with food as needed for pain/discomfort. Follow up with your primary care doctor after the scan as scheduled. Return to the Emergency Department for re-evaluation if you have any sudden voice change, shortness of breath, coughing or vomiting blood. DONNY FAJARDO MD Nov 24, 2022 11:57
--- NOTE | 2022-11-24 12:18 | Diagnostic Imaging Report ---
CLINICAL INDICATION: Patient has foreign body sensation in throat and reports symptoms greater than three months. EXAM: X-ray of the neck soft tissue, AP and lateral views. COMPARISON: CT angiogram of the neck with contrast dated 01/19/2020. FINDINGS: There is no retropharyngeal thickening seen. There are small areas of increased density superiorly and anterior to the thyroid cartilage region which is also noted on the prior CT angiogram and likely related to cartilaginous calcification. Hyoid bone appears grossly similar. There is no soft tissue air or radiodense foreign object. There are degenerative spurs anteriorly involving the C4 through C7 levels with mild loss of disk space height. IMPRESSION: 1: There is no soft tissue air or radiodense foreign object seen on this exam. There is no significant abnormality, as visualized. CT scan of the neck would better evaluate. 2: Cervical spine degenerative disease. Dictated by: Dictated on workstation # [id number]
== END 2022-11-24 12:46 | disposition home or self-care (01) ==
LOC: EDUNIT# 10:44 → ER 10:46
DX: M54.2 Cervicalgia (principal); F17.200 Nicotine dependence, unspecified, uncomplicated; Z28.310 Unvaccinated for COVID-19
CPT/HCPCS: 70360

== ENCOUNTER 2023-01-02 05:33 | Outpatient (CLI) | payer MEDICAID ==
[~2023-01-02] VITALS: Ht 162.6 cm; Wt 60.9 kg
[2023-01-04] MEDS ORDERED: PANT40TA52 PO (10:27)
[2023-01-04] MEDS ORDERED: SERT-414 PO (10:27)
== END 2023-01-04 10:50 | disposition home or self-care (01) ==
LOC: PREOP 05:33
PROVIDERS: ATTEND Otolaryngology Otolaryngology/Facial Plastic Surgery
DX: Z01.818 Encounter for other preprocedural examination (principal)

== ENCOUNTER 2023-01-05 05:54 | Day surgery (SDC) | payer MEDICAID ==
[2023-01-05] VITALS (16 sets, daily range): BP systolic 91–111; BP diastolic 43–71
[~2023-01-05] VITALS: Ht 162.6 cm; Wt 60.9 kg
[~2023-01-05 05:54] MED LIST changes: +PANT40TA52 PO; +SERT-414 PO
[2023-01-05] MEDS: LACTATED RINGERS 1,000 ML 1,000 ML IV PRN ×2 (06:40→08:40)
[2023-01-05] MEDS ORDERED: LIDOCAINE 1% w/EPI 1:100,000 20 ML VIAL ONE (06:48)
--- NOTE | 2023-01-05 06:50 | Progress Note-Pre Operative ---
Pre-Operative Progress Note Date of Available H&P: Jan 05, 2023 Date H&P Reviewed: Jan 05, 2023 Time H&P Reviewed: 06:30 History & Physical: H&P Reviewed, Patient Examed, No changes noted Changes from last HP none Pre-Operative Diagnosis: Right Pyriform Sinus Mass-Retention cyst/globus sensation ANA MARTINEZ MD Jan 05, 2023 06:50
--- NOTE | 2023-01-05 06:51 | Progress Note-Post Operative ---
Post-Operative Progess Note Surgeon (s)/Safety Instructor (s) Surgeon ANA MARTINEZ MD Safety Instructor n/a Pre-Operative Diagnosis Right Pyriform Sinus Mass-Retention cyst/globus sensation Post-Operative Diagnosis same Post-Op Procedure Note Date of Procedure: Jan 05, 2023 Name of Procedure Performed: Direct LAryngoscopy with Removal of Right Pyriform Sinus MAss Description & Findings Description and Findings: n/a Anesthesia Type get Estimated Blood Loss minimal Packing none. Specimen(s) collected/removed right pyriform sinus biopsy ANA MARTINEZ MD Jan 05, 2023 06:51
[2023-01-05] MEDS ORDERED: PROMETHAZINE INJ 25 MG/ML VIAL IV PRN (07:00)
[2023-01-05] MEDS ORDERED: HYDROcodone/ACETAMINOPHEN 5 MG/325 MG TABLET PO PRN (07:00)
[2023-01-05] MEDS ORDERED: LIDOCAINE PF 2% 5 ML VIAL ONE (07:01)
[2023-01-05] MEDS ORDERED: ONDANSETRON INJECTION 4 MG/2 ML (SDV) ONE (07:01)
[2023-01-05] MEDS ORDERED: proPOfol INJECTION 200 MG/20 ML VIAL IV ONE (07:01)
[2023-01-05] MEDS ORDERED: fentaNYL INJECTION 100 MCG/2 ML VIAL ONE ×2 (07:02→08:38)
[2023-01-05] MEDS ORDERED: MIDAZOLAM INJ 2 MG/2 ML VIAL ONE (07:02)
[2023-01-05] MEDS ORDERED: dexAMETHasone INJ 10 MG/ML 1 ML VIAL ONE (07:30)
[2023-01-05] MEDS ORDERED: SEVOFLURANE (ULTANE) 15 ML INHAL SOLN ONE (07:41)
[2023-01-05] MEDS ORDERED: morphine INJ 10 MG/ML 1ML (SYR OR VIAL) IVP ONE (08:00)
[2023-01-05] MEDS ORDERED: ONDANSETRON INJECTION 4 MG/2 ML (SDV) IVP PRN (08:00)
[2023-01-05] MEDS ORDERED: morphine INJ 10 MG/ML 1ML (SYR OR VIAL) ONE (08:11)
[2023-01-05] MEDS ORDERED: diphenhydrAMINE INJ 50 MG/ML VIAL ONE (08:28)
--- NOTE | 2023-01-05 09:45 | Anesthesia-General Post-Op ---
General Patient Condition Mental Status/LOC: Same as Preop Cardiovascular: Satisfactory Nausea/Vomiting: Absent Respiratory: Satisfactory Pain: Controlled Complications: Absent Post Op Complications Complications None Follow Up Care/Instructions Patient Instructions None needed. Anesthesia/Patient Condition Patient Condition Patient is doing well, no complaints, stable vital signs, no apparent adverse anesthesia problems. No complications reported per nursing. RAD FRIEND CRNA Jan 05, 2023 09:45
== END 2023-01-05 09:57 | disposition home or self-care (01) ==
LOC: SDC 05:54
PROVIDERS: ATTEND Otolaryngology Otolaryngology/Facial Plastic Surgery
DX: J38.7 Other diseases of larynx (principal); K21.9 Gastro-esophageal reflux disease without esophagitis; F17.210 Nicotine dependence, cigarettes, uncomplicated; F45.8 Other somatoform disorders; Z28.310 Unvaccinated for COVID-19; Z79.899 Other long term (current) drug therapy
CPT/HCPCS: 84703; 87081

== ENCOUNTER 2023-03-23 11:48 | Emergency (ER) | payer MEDICAID ==
[~2023-03-23] VITALS: Ht 162.4 cm; Wt 58.9 kg
[2023-03-23] MEDS ORDERED: HOLD METFORMIN - RECEIVED CONTRAST 20 ML VIAL IV SCH ×2 (12:15)
[2023-03-23] MEDS ORDERED: IOHEXOL 350 MG/ML 100 ML (OMNIPAQUE 350) VIAL IV ONE ×2 (12:15)
[2023-03-23] MEDS ORDERED: NS 100 ML (IVPB) BAG IV ONE ×2 (12:15)
--- NOTE | 2023-03-23 12:16 | ED EENT ---
History of Present Illness General Chief Complaint: Post OP Complications/Pain Stated Complaint: POST OP THROAT COMPLICATIONS Nursing Triage Note: PT AMB TO RM 09 WITH CC OF FOUL SMELL FROM MOUTH AND SORE THROAT X2 WKS. PT STATES THAT SHE HAD A CYST REMOVED ON HER VOCAL CORD BY DR SALAZAR 1 MONTH AGO AND MISSED HER FOLLOW UP APPT. PT REPORTS THAT SHE HAS SMELT FECES FOR OVER A YEAR. Source: patient Exam Limitations: no limitations History of Present Illness Date Seen by Provider: Mar 23, 2023 Time Seen by Provider: 11:52 Initial Comments 27-year-old female presents to the ER with complaint of sore throat for the last 3 weeks, and her breath smelling like feces for the last year. She had a small retention cyst near the base of her piriform cyst that was removed on 01/05/2023 Dr. Salazar, ENT. She reports that for the last 3 weeks she has had a sore throat. She also feels as though over the last week the smell is worse when she has a bowel movement. She reports that normally she has a bowel movement every day, but reports that the last week it has been about every other day. Last bowel movement was this morning. She also complains of mild lower abdominal pain. States that the pain is worse when she lays on her abdomen. She denies dysuria. She reports that she has been seen by [facility] several times for this sore throat. They put her on antibiotics, she states that it helped the sore throat and the odor at first, but then it returned. She denies fevers, chest pain, shortness of air. Does report nausea, no vomiting. Allergies and Home Medications Allergies Uncoded Allergies: MORPHINE (Allergy, Mild, HIVES, 01/05/23) PT RECEIVED MORPHINE FOR PAIN AND DEVELOPED HIVES ABOVE IV SITE AFTER RECEIVING MORPHINE. Patient Home Medication List Home Medication List Reviewed: Yes Pantoprazole Sodium (Pantoprazole Sodium) 40 Mg Tablet., 40 MG PO DAILY, (Reported) Entered as Reported by: Carol Hudson on 01/04/23 1027 Sertraline HCl (Sertraline HCl) 100 Mg Tablet, 100 MG PO DAILY, (Reported) Entered as Reported by: Carol Hudson on 01/04/23 1027 Review of Systems Review of Systems Constitutional: see HPI Past Opvizee-Brjnud-Osnxsh Hx Patient Social History Tobacco Use?: No Use of E-Cig and/or Vaping dev: Yes E-Cig or Vaping type used: Nicotine Substance use?: No Alcohol Use?: No Immunizations Up To Date Tetanus Booster (TDap): Unknown First/Initial COVID19 Vaccinat: not vaccinated Second COVID19 Vaccination Khari: not vaccinated Third COVID19 Vaccination Date: not vaccinated Seasonal Allergies Seasonal Allergies: No Past Medical History Surgery/Hospitalization HX: depression, seizures Surgeries: No Respiratory: No Currently Using CPAP: No Currently Using BIPAP: No Cardiac: No Neurological: Yes Headaches /Migraines Sexually Transmitted Disease: No Genitourinary: Yes Kidney Infection Gastrointestinal: Yes Gastroesophageal Reflux Musculoskeletal: No Endocrine: No HEENT: Yes (SINUS MASS) Loss of Vision: Denies Hearing Impairment: Denies Cancer: No Psychosocial: Yes Anxiety, Depression Integumentary: No Blood Disorders: No Adverse Reaction/Blood Tranf: No Physical Exam Vital Signs Vital Signs - First Documented 03/23/23 11:56 Temp 37.6 Pulse 79 B/P (MAP) 135/86 (102) Pulse Ox 99 O2 Delivery Room Air Height, Weight, BMI Height: '" Weight: lbs. oz. kg; 22.00 BMI Method: General Appearance: WD/WN, no apparent distress Mouth/Throat: pharynx normal, other (No odor noted) Neck: supple, normal inspection Cardiovascular: regular rate, rhythm Respiratory: lungs clear, normal breath sounds, no respiratory distress, no accessory muscle use Gastrointestinal: normal bowel sounds, soft; No guarding; tenderness (Mild left lower quadrant tenderness) Neurologic/Psychiatric: alert, normal mood/affect Skin: normal color, warm/dry Progress/Results/Core Measures Results/Orders Lab Results Laboratory Tests Test 03/23/23 11:57 03/23/23 12:13 03/23/23 13:04 Range/Units Group A Streptococcus Screen Not Detected NotDetected White Blood Count 5.5 4.3-11.0 10^3/uL Red Blood Count 3.80 3.80-5.11 10^6/uL Hemoglobin 12.6 11.5-16.0 g/dL Hematocrit 38 35-52 % Mean Corpuscular Volume 99 80-99 fL Mean Corpuscular Hemoglobin 33 25-34 pg Mean Corpuscular Hemoglobin Concent 34 32-36 g/dL Red Cell Distribution Width 12.6 10.0-14.5 % Platelet Count 267 130-400 10^3/uL Mean Platelet Volume 8.8 L 9.0-12.2 fL Immature Granulocyte % (Auto) 0 % Neutrophils (%) (Auto) 52 42-75 % Lymphocytes (%) (Auto) 36 12-44 % Monocytes (%) (Auto) 10 0-12 % Eosinophils (%) (Auto) 0 0-10 % Basophils (%) (Auto) 1 0-10 % Neutrophils # (Auto) 2.9 1.8-7.8 10^3/uL Lymphocytes # (Auto) 2.0 1.0-4.0 10^3/uL Monocytes # (Auto) 0.6 0.0-1.0 10^3/uL Eosinophils # (Auto) 0.0 0.0-0.3 10^3/uL Basophils # (Auto) 0.0 0.0-0.1 10^3/uL Immature Granulocyte # (Auto) 0.0 0.0-0.1 10^3/uL Sodium Level 141 135-145 MMOL/L Potassium Level 4.3 3.6-5.0 MMOL/L Chloride Level 110 H 98-107 MMOL/L Carbon Dioxide Level 23 21-32 MMOL/L Anion Gap 8 5-14 MMOL/L Blood Urea Nitrogen 8 7-18 MG/DL Creatinine 0.78 0.60-1.30 MG/DL Estimat Glomerular Filtration Rate 106 BUN/Creatinine Ratio 10 Glucose Level 107 H 70-105 MG/DL Calcium Level 9.1 8.5-10.1 MG/DL Corrected Calcium 8.7 8.5-10.1 MG/DL Total Bilirubin 0.4 0.1-1.0 MG/DL Aspartate Amino Transf (AST/SGOT) 27 5-34 U/L Alanine Aminotransferase (ALT/SGPT) 27 0-55 U/L Alkaline Phosphatase 68 40-136 U/L C-Reactive Protein High Sensitivity 0.07 0.00-0.50 MG/DL Total Protein 7.4 6.4-8.2 GM/DL Albumin 4.5 3.2-4.5 GM/DL Urine Color YELLOW Urine Clarity CLEAR Urine pH 8.5 5-9 Urine Specific [place] 1.015 L 1.016-1.022 Urine Protein NEGATIVE NEGATIVE Urine Glucose (UA) NEGATIVE NEGATIVE Urine Ketones NEGATIVE NEGATIVE Urine Nitrite NEGATIVE NEGATIVE Urine Bilirubin NEGATIVE NEGATIVE Urine Urobilinogen 0.2 < = 1.0 MG/DL Urine Leukocyte Esterase NEGATIVE NEGATIVE Urine RBC (Auto) NEGATIVE NEGATIVE Urine RBC NONE /HPF Urine WBC NONE /HPF Urine Squamous Epithelial Cells 2-5 /HPF Urine Crystals NONE /LPF Urine Bacteria NEGATIVE /HPF Urine Casts NONE /LPF Urine Mucus NEGATIVE /LPF Urine Culture Indicated NO My Orders Orders - CANDELARIO PRUITT [employer] Cbc And Automated Diff (03/23/23 12:05) Comprehensive Metabolic Panel (03/23/23 12:05) Hs C Reactive Protein (03/23/23 12:05) Rapid Strep A Screen (03/23/23 12:05) Ed Iv/Invasive Line Start (03/23/23 12:05) Ct Neck (Soft Tissue) W (03/23/23 12:05) Ua Culture If Indicated (03/23/23 12:05) Iohexol Injection (Omnipaque 350 Mg/Ml 1 (03/23/23 12:15) Received Contrast (Hold Metformin- Contr (03/23/23 12:15) Ns (Ivpb) 100 Ml (Sodium Chloride 0.9% 1 (03/23/23 12:15) Urine Bedside (03/23/23 13:06) Medications Given in ED Current Medications Medications Dose Ordered Sig/Miguel Route Start Time Stop Time Status Last Admin Dose Admin Iohexol 75 ml ONCE ONCE IV 03/23/23 12:15 03/23/23 12:16 DC 03/23/23 12:40 75 ML Sodium Chloride 100 ml ONCE ONCE IV 03/23/23 12:15 03/23/23 12:16 DC 03/23/23 12:40 80 ML Vital Signs/I&O 03/23/23 03/23/23 11:56 13:31 Temp 37.6 Pulse 79 B/P (MAP) 135/86 (102) 117/78 Pulse Ox 99 O2 Delivery Room Air Blood Pressure Mean: 102 Progress Progress Note : Progress Note Patient seen and evaluated, resting comfortably in bed, no acute distress. Based on exam and symptoms, work-up initiated including CBC, CMP, CRP, rapid strep, UA, CT neck soft tissue. [address] reviewed. CBC grossly normal. CMP grossly normal. CRP normal. Urinalysis negative for infection. Rapid strep negative. CT neck shows no acute findings. No recurrent cyst in the piriform sinus. Results discussed with patient. I do not think patient needs antibiotics at this time. Patient instructed to follow-up with Dr. Salazar. Discharge instructions and return precautions provided. Departure Impression Primary Impression: Sore throat Disposition: 01 HOME, SELF-CARE Condition: Stable Departure-Patient Inst. Decision time for Depature: 13:24 Referrals: KATHERIN MAYS APRN (PCP/Family) Primary Care Physician Patient Instructions: Sore throat in adults Add. Discharge Instructions: Follow-up with Dr. Salazar. Return for any new, concerning, or worsening symptoms. CANDELARIO PRUITT APRN Mar 23, 2023 12:16
[2023-03-23 12:21] LABS: BASOPHILS % (AUTO) 1 % (0-10); EOSINOPHILS % (AUTO) 0 % (0-10); HEMATOCRIT 38 % (35-52); HEMOGLOBIN 12.6 g/dL (11.5-16.0); LYMPHOCYTES % (AUTO) 36 % (12-44); MEAN CORPUSCULAR HEMOGLOBIN 33 pg (25-34); MEAN CORPUSCULAR HGB CONC 34 g/dL (32-36); MEAN CORPUSCULAR VOLUME 99 fL (80-99); MEAN PLATELET VOLUME 8.8 fL (9.0-12.2); MONOCYTES # (AUTO) 0.6 10^3/uL (0.0-1.0); MONOCYTES % (AUTO) 10 % (0-12); NEUTROPHILS # (AUTO) 2.9 10^3/uL (1.8-7.8); NEUTROPHILS % (AUTO) 52 % (42-75); PLATELET COUNT 267 10^3/uL (130-400); WHITE BLOOD COUNT 5.5 10^3/uL (4.3-11.0)
[2023-03-23 12:29] LABS: ALBUMIN 4.5 GM/DL (3.2-4.5); POTASSIUM 4.3 MMOL/L (3.6-5.0)
[2023-03-23 12:30] LABS: CALCIUM 9.1 MG/DL (8.5-10.1)
[2023-03-23 12:31] LABS: TOTAL PROTEIN 7.4 GM/DL (6.4-8.2)
[2023-03-23 12:33] LABS: BILIRUBIN,TOTAL 0.4 MG/DL (0.1-1.0)
[2023-03-23 12:35] LABS: CREATININE SERUM 0.78 MG/DL (0.60-1.30)
--- NOTE | 2023-03-23 12:57 | Diagnostic Imaging Report ---
PROCEDURE: CT neck soft tissue with contrast. TECHNIQUE: Multiple contiguous axial images were obtained through the neck after the administration of contrast. Auto Exposure Controls were utilized during the CT exam to meet ALARA standards for radiation dose reduction. INDICATION: Sore throat. History of cyst removal from piriform sinus. COMPARISON: CT angiogram head and neck, 01/19/2020. Findings: The visualized intracranial contents demonstrate no evidence of pathologic intracranial enhancement or intracranial mass effect. Visualized orbital contents are unremarkable. The visualized paranasal sinuses are clear. The mastoids and middle ears Appear clear. The posterior nasopharynx and oropharynx demonstrate appropriate symmetry. There is no displacement of the parapharyngeal fat planes. There is no abnormal process evident within the prevertebral or retropharyngeal space. There is no evidence of abnormal thickening of the epiglottis or aryepiglottic folds. The vocal folds appear symmetric. The vallecula and piriform sinuses appear well aerated and clear. No residual or recurrent cyst identified. The parotid, submandibular and thyroid gland are unremarkable. No pathologically enlarged cervical lymph nodes are evident. No focal inflammatory changes are demonstrated. No soft tissue mass or fluid collection demonstrated. The vascular structures the neck demonstrate no evidence of high-grade stenosis on this nondedicated exam. The visualized lung apices are clear. There are mild degenerative features within the cervical spine without CT evidence of an acute or suspicious osseous abnormality. Cervical spine alignment appears within normal limits. Impression: 1. Appropriate symmetry of the aerodigestive tract. 2. No evidence of pathologic adenopathy. 3. No soft tissue mass, fluid collection or focal inflammatory changes demonstrated. No recurrent abnormality in the region the piriform sinus. Dictated by: Dictated on workstation # [id number]
[2023-03-23 13:20] LABS: CLARITY,URINE CLEAR; COLOR,URINE YELLOW; GLUCOSE, URINE (UA) NEGATIVE (NEGATIVE); KETONES,URINE NEGATIVE (NEGATIVE); NITRITE,URINE NEGATIVE (NEGATIVE); PH,URINE 8.5 (5-9); PROTEIN,URINE NEGATIVE (NEGATIVE)
[2023-03-23 13:21] LABS: BACTERIA,URINE NEGATIVE /HPF; BILIRUBIN,URINE NEGATIVE (NEGATIVE); LEUKOCYTE ESTERASE ,URINE NEGATIVE (NEGATIVE)
[2023-03-23 13:31] VITALS: BP 117/78
== END 2023-03-23 13:32 | disposition home or self-care (01) ==
LOC: EDUNIT# 11:48 → ER 11:50
DX: J02.9 Acute pharyngitis, unspecified (principal); R10.32 Left lower quadrant pain; F17.290 Nicotine dependence, other tobacco product, uncomplicated
CPT/HCPCS: 36415; 70491; 80053; 81000; 84703; 85025; 86141; 87430